=== PATIENT | female | born 1955 | race Caucasian/White ===

== ENCOUNTER 2019-05-04 08:38 | Inpatient (IN) | payer MEDICAID, MEDICARE ==
[2019-05-04 09:11] LABS: ABSOLUTE EOSINOPHILS # (AUTO) 0.2 10^3/uL (0.0-0.6); ABSOLUTE LYMPHOCYTES (AUTO) 1.6 10^3/uL (0.5-4.7); ABSOLUTE MONOCYTES (AUTO) 0.6 10^3/uL (0.1-1.4); BASOPHILS % (AUTO) 0.6 % (0-2); EOSINOPHILS % (AUTO) 2.4 % (0-6); HEMATOCRIT 48.7 % (36.0-47.0); HEMOGLOBIN 16.2 g/dL (12.0-15.5); MEAN CORPUSCULAR HEMOGLOBIN 30.4 pg (27.0-33.4); MEAN CORPUSCULAR HGB CONC 33.3 g/dL (32.0-36.0); MEAN CORPUSCULAR VOLUME 91 fl (80-97); MONOCYTES % (AUTO) 8.6 % (3-13); PLATELET COUNT 194 10^3/uL (150-450); RED BLOOD COUNT 5.33 10^6/uL (3.72-5.28); RED CELL DISTRIBUTION WIDTH 13.3 % (11.5-14.0); SEGMENTED NEUTROPHILS % (AUTO) 66.4 % (42-78); TOTAL CELLS COUNTED % (AUTO) 100 %; WHITE BLOOD COUNT 7.5 10^3/uL (4.0-10.5)
[2019-05-04 09:41] LABS: ALBUMIN 4.6 g/dL (3.5-5.0); ALKALINE PHOSPHATASE 108 U/L (38-126); ANION GAP 7 (5-19); ASPARTATE AMINO TRANSFERASE 41 U/L (14-36); BILIRUBIN,DIRECT 0.2 mg/dL (0.0-0.4); BILIRUBIN,TOTAL 0.5 mg/dL (0.2-1.3); BLOOD UREA NITROGEN 14 mg/dL (7-20); CALCIUM 10.3 mg/dL (8.4-10.2); CARBON DIOXIDE 34 mmol/L (22-30); CHLORIDE 101 mmol/L (98-107); CREATINE KINASE 27 U/L (30-135); GLUCOSE 112 mg/dL (75-110); POTASSIUM 4.7 mmol/L (3.6-5.0); TOTAL PROTEIN 7.6 g/dL (6.3-8.2)
[2019-05-04 09:53] LABS: CREATINE KINASE MB 1.26 ng/mL (<4.55); NT PRO BNP 127 pg/mL (<125)
--- NOTE | 2019-05-04 09:54 | RADIOLOGY REPORT (SQ) ---
EXAM DESCRIPTION: CHEST SINGLE VIEW COMPLETED DATE/TIME: 05/04/2019 9:47 am REASON FOR STUDY: cough, COPD COMPARISON: None. NUMBER OF VIEWS: One view. TECHNIQUE: Single frontal radiographic view of the chest acquired. LIMITATIONS: None. FINDINGS: LUNGS AND PLEURA: No opacities, masses or pneumothorax. No pleural effusion. Attenuated bl ood vessels and flattened drake-diaphragms. MEDIASTINUM AND HILAR STRUCTURES: No masses. Contour normal. HEART AND VASCULAR STRUCTURES: Heart normal in size. Normal vasculature. BONES: No acute findings. HARDWARE: None in the chest. OTHER: No other significant finding. IMPRESSION: COPD. NO ACUTE RADIOGRAPHIC FINDING IN THE CHEST. TECHNICAL DOCUMENTATION: JOB ID: [id number] [employer]- All Rights Reserved Reading location - IP/workstation name: [email or web address]
[2019-05-04 09:57] LABS: TROPONIN I < 0.012 ng/mL
[2019-05-04] MEDS ORDERED: ALBUTEROL SULFATE 0.083% NEB 2.5 MG/3 ML AMPUL NEB ONE ×2 (10:03→13:11)
[2019-05-04] MEDS ORDERED: METHYLPREDNISOLONE INJ 125 MG/2 ML SDV IV ONE (10:03)
[2019-05-04] MEDS ORDERED: IPRATROPIUM/ALBUTEROL 0.5-2.5 MG/3 ML AMPUL NEB ONE ×2 (10:03→13:11)
--- NOTE | 2019-05-04 10:03 | ER Document Report ---
ED General - General Chief Complaint: Breathing Difficulty Stated Complaint: SHORTNESS OF BREATH Time Seen by Provider: 05/04/19 09:47 TRAVEL OUTSIDE OF THE [place] IN LAST 30 DAYS: No - HPI Notes: 64-year-old female with past medical history of COPD to the emergency department via EMS with complaints of shortness of breath has been getting progressively worse over the past 3 to 5 days. She states that she recently moved here couple months ago from [place] and her Medicaid has not transferred over. Because of that she has not been able to have a physician or get any of her maintenance medicines. She states that her maintenance medicines are albuterol rescue inhaler and albuterol nebulizers. She states that she still has portable oxygen as well. However in the past several days she is just been getting worse. She has never been intubated for COPD before but she has been hospitalized. She s tates that she cannot remember exactly when but it was several years ago. She states that she still continues to smoke5 to 6 cigarettes a day. She has not been able to smoke in the past several days because she has been so short of breath. She denies any chest pain, diaphoresis, fevers. She does admit to cough. She denies any sick contacts. She also endorses urinary frequency. - Related Data Allergies/Adverse Reactions: tramadol Allergy (Verified 05/04/19 09:11) Home Medications: Albuterol. Home Oxygen Past Medical History - General Information source: Patient - Social History Smoking Status: Current Every Day Smoker Frequency of alcohol use: None Drug Abuse: None Family History: Reviewed & Not Pertinent Patient has suicidal ideation: No Patient has homicidal ideation: No Review of Systems - Review of Systems Constitutional: denies: Chills, Fever EENT: No symptoms reported Cardiovascular: Heart racing - Heart racing when exerting herself. denies: Syncope, Dizziness, Lightheaded Respiratory: Cough, Short of breath, Sputum, Wheezing Gastrointestinal: denies: Abdominal pain, Diarrhea, Nausea, Vomiting Genitourinary: Frequency. denies: Burning, Dysuria, Flank pain, Hematuria, Incontinence Musculoskeletal: No symptoms reported Skin: No symptoms reported Hematologic/Lymphatic: No symptoms reported Neurological/Psychological: No symptoms reported -: Yes All other systems reviewed and negative Physical Exam - Vital signs Vitals: Resp Pulse Ox 28 H 100 05/04/19 08:45 05/04/19 08:45 Selected Entries 05/04/19 05/04/19 05/04/19 09:00 09:01 10:00 Heart Rate ( 94 109 Monitors) Respiratory 24 H 22 H Rate Blood Pressure 127/70 H Blood Pressure 89 Mean O2 Sat by Pulse 94 Oximetry 05/04/19 10:01 Heart Rate ( 104 Monitors) Respiratory 34 H Rate Blood Pressure 141/79 H Blood Pressure 99 Mean O2 Sat by Pulse 92 Oximetry Interpretation: Normal - General General appearance: Alert In distress: Mild Notes: Patient appears older than stated age. She is very thin and cachectic. While laying in the bed she does not have respiratory distress and can speak in full sentences but as soon as you sit her up to listen to her back she starts to have some tachypnea and shortness of breath. Per SENA Warren when she first arrived she was tripoding but then was able to settle down. She is not diaphoretic - HEENT Head: Normocephalic, Atraumatic Eyes: Normal Pupils: PERRL Ears: Normal External canal: Normal Tympanic membrane: Normal Sinus: Normal Nasal: Normal Mouth/Lips: Normal Pharynx: Normal. No: Potential airway comprom. Neck: Normal, Supple - Respiratory Respiratory status: Labored, Pursed lip breathing. No: Retractions, Tachypnea, Tripod position Chest status: Nontender Breath sounds: Decreased air movement, Productive cough, Wheezing Chest palpation: Normal - Cardiovascular Rhythm: Regular Heart sounds: Normal auscultation Murmur: No Notes: no pitting edema - Abdominal Inspection: Normal Distension: No distension Bowel sounds: Normal Tenderness: Nontender. No: Tender, McBurney's point, Medrano's sign, Guarding, Rebound Organomegaly: No organomegaly - Back Back: Normal. No: Deformity/step-off, CVA tenderness, Vertebra tenderness - Extremities General upper extremity: Normal inspection, Nontender, Normal color, Normal ROM, Normal temperature General lower extremity: Normal inspection, Nontender, Normal color, Normal ROM, Normal temperature, Normal weight bearing. No: Rubi's sign - Neurological Neuro grossly intact: Yes Cognition: Normal Orientation: AAOx4 Bert Coma Scale Eye Opening: Spontaneous Bert Coma Scale Verbal: Oriented Bert Coma Scale Motor: Obeys Commands [place] Coma Scale Total: 15 Speech: Normal Cranial nerves: Normal Cerebellar coordination: Normal Motor strength normal: LUE, RUE, LLE, RLE Additional motor exam normals: Equal comedian. No: Pronator drift Sensory: Normal - Psychological Associated symptoms: Normal affect, Normal mood - Skin Skin Temperature: Warm Skin Moisture: Dry Skin Color: Normal Course - Re-evaluation Re-evalutation: 05/04/[address] Benitez and he agrees that she will need admission. Did attempt an ambulation challenge on the patient and she failed it quite quickly. When SENA Warren was trying to ambulate the patient, patient got acutely short of breath with tachypnea, heart rate up to 130, and her O2 sat on 3 L of oxygen went down to 86%. She was very winded. I rounded on her not long after her attempted ambulation and she still was having a little bit of tachypnea and prolonged expirations. Spoke with , hospitalist. We discussed the patient to include her presentation as well as her difficulty with ambulation even on her normal 3 L of oxygen. He will come down and see her. - Vital Signs Vital signs: Temp Pulse Resp BP Pulse Ox 135 H 30 H 121/66 86 L 05/04/19 15:00 05/04/19 15:00 05/04/19 15:00 05/04/19 15:00 - Laboratory Result Diagrams: 05/04/19 08:51 05/04/19 08:51 Laboratory results interpreted by me: 05/04/19 05/04/19 05/04/19 08:51 08:51 08:51 RBC 5.33 H Hgb 16.2 H Hct 48.7 H Carbon Dioxide 34 H Glucose 112 H Calcium 10.3 H AST 41 H Creatine Kinase 27 L NT-Pro-B Natriuret Pep 127 H Urine Protein Urine Ketones Urine Blood Urine Nitrite Ur Leukocyte Esterase 05/04/19 11:35 RBC Hgb Hct Carbon Dioxide Glucose Calcium AST Creatine Kinase NT-Pro-B Natriuret Pep Urine Protein 30 H Urine Ketones TRACE H Urine Blood MODERATE H Urine Nitrite POSITIVE H Ur Leukocyte Esterase MODERATE H Discharge - Discharge Clinical Impression: COPD exacerbation, Tachycardia, Tachypnea, Hypoxia Condition: Stable Disposition: ADMITTED INPATIENT Admitting Provider: Roberta (Hospitalist) Unit Admitted: Telemetry
[2019-05-04 11:59] LABS: APPEARANCE,URINE CLOUDY; BILIRUBIN,URINE NEGATIVE (NEGATIVE); COLOR,URINE YELLOW; GLUCOSE, URINE NEGATIVE (NEGATIVE); KETONES,URINE TRACE mg/dL (NEGATIVE); LEUKOCYTE ESTERASE,URINE MODERATE (NEGATIVE); NITRITE,URINE POSITIVE (NEGATIVE); PROTEIN,URINE 30 mg/dL (NEGATIVE); URINE SPECIFIC GRAVITY 1.019; UROBILINOGEN,URINE NEGATIVE mg/dL (<2.0)
[2019-05-04] MEDS ORDERED: ACETAMINOPHEN 325 MG TABLET PO ONE (12:11)
[2019-05-04] MEDS ORDERED: NORMAL SALINE 1000 ML 1,000 ML IV ONE (13:12)
[2019-05-04] MEDS: MAGNESIUM SULFATE/D5W 1 GM/100 ML RTUPB IV SCH ×2 (14:15→15:26)
--- NOTE | 2019-05-04 16:29 | PDOC H&P ---
History of Present Illness History of Present Illness: STAN LINN is a 64 year old female with a history of oxygen dependent COPD who moved here within the last few months and did not get her Medicaid arranged ahead of time and so she is been here for the past few months without a primary care doctor and she ran out of her medicines not long ago. She says she has been borrowing an albuterol inhaler from someone. She does have an oxygen c oncentrator. She says she normally can only walk a few feet before she gets short of breath and has to catch her breath. She does say that she felt like she has been declining over the last few months. She was then state this morning where she felt like she could not catch her breath at all and so her son called EMS. She was apparently wheezing pretty hard whenever she came in but she has responded to bronchodilators. They ambulated her on the 3 L per nasal cannula that she normally wears and her oxygen saturations went down to 86%, which is probably pretty normal for her. Past Medical History Pulmonary Medical History: Reports: Chronic Obstructive Pulmonary Disease (COPD) Social History Smoking Status: Current Every Day Smoker Family History Family History: Reviewed & Not Pertinent Parental Family History Reviewed: Yes Children Family History Reviewed: Yes Sibling(s) Family History Reviewed.: Yes Medication/Allergy Allergies/Adverse Reactions: tramadol Allergy (Verified 05/04/19 09:11) Review of Systems All systems: reviewed and no additional remarkable complaints except as stated - All systems were reviewed and were negative except as noted in the HPI Physical Exam Vital Signs: Temp Pulse Resp BP Pulse Ox 135 H 30 H 121/66 86 L 05/04/19 15:00 05/04/19 15:00 05/04/19 15:00 05/04/19 15:00 Intake & Output 05/03/19 05/04/19 05/05/19 06:59 06:59 06:59 Intake Total 1200 Balance 1200 General appearance: PRESENT: no acute distress, cooperative, disheveled, thin Head exam: PRESENT: atraumatic, normocephalic Eye exam: PRESENT: EOMI, PERRLA. ABSENT: conjunctival injection, nystagmus, scleral icterus Ear exam: PRESENT: normal external ear exam Mouth exam: PRESENT: moist, neck supple Teeth exam: PRESENT: poor dentation Throat exam: ABSENT: post pharyngeal erythema Neck exam: PRESENT: full ROM. ABSENT: carotid bruit, JVD, lymphadenopathy, meningismus, tenderness, thyromegaly Respiratory exam: PRESENT: decreased breath sounds, prolonged expiratory phas, symmetrical, unlabored, other - Increased AP chest diameter. ABSENT: accessory muscle use, chest wall tenderness, crackles, rhonchi, tachypnea, wheezes Cardiovascular exam: PRESENT: +S1, +S2, tachycardia Pulses: PRESENT: normal carotid pulses Vascular exam: PRESENT: normal capillary refill GI/Abdominal exam: PRESENT: normal bowel sounds, soft. ABSENT: distended, guarding, rebound, tenderness Extremities exam: ABSENT: clubbing, pedal edema Musculoskeletal exam: PRESENT: normal inspection. ABSENT: deformity Neurological exam: PRESENT: alert, awake, oriented to person, oriented to place, oriented to time, oriented to situation, CN II-XII grossly intact. ABSENT: motor sensory deficit Psychiatric exam: PRESENT: flat affect Skin exam: PRESENT: dry, warm Results Laboratory Results: 05/04/19 08:51 05/04/19 08:51 05/04/19 05/04/19 05/04/19 08:51 08:51 11:35 WBC 7.5 RBC 5.33 H Hgb 16.2 H Hct 48.7 H MCV 91 MCH 30.4 MCHC 33.3 RDW 13.3 Plt Count 194 Seg Neutrophils % 66.4 Sodium 142.3 Potassium 4.7 Chloride 101 Carbon Dioxide 34 H Anion Gap 7 BUN 14 Creatinine 0.63 Est GFR ( Amer) > 60 Glucose 112 H Calcium 10.3 H Total Bilirubin 0.5 AST 41 H Alkaline Phosphatase 108 Total Protein 7.6 Albumin 4.6 Urine Color YELLOW Urine Appearance CLOUDY Urine pH 5.0 Ur Specific [place] 1.019 Urine Protein 30 H Urine Glucose (UA) NEGATIVE Urine Ketones TRACE H Urine Blood MODERATE H Urine Nitrite POSITIVE H Ur Leukocyte Esterase MODERATE H Urine WBC (Auto) 58 Urine RBC (Auto) 05/04/19 05/04/19 08:51 08:51 Creatine Kinase 27 L CK-MB (CK-2) 1.26 Troponin I < 0.012 NT-Pro-B Natriuret Pep 127 H Impressions: Chest X-Ray 05/04/19 08:56 IMPRESSION: COPD. NO ACUTE RADIOGRAPHIC FINDING IN THE CHEST. Assessment and Plan - Diagnosis (1) COPD exacerbation Is this a current diagnosis for this admission?: Yes Plan: She responded to bronchodilators and was stable at rest. I believe that when I ambulated her on 3 L and her oxygen saturation dropped to 86%, this is probably normal for this patient considering the severity of her COPD. Based on her description of her baseline level of activity, I think that she probably does minimal ADLs with a substantial amount of effort. She has rather impressively hyperinflated lungs on chest x-ray. She is not wheezing now. I am going to put her on some prednisone and some breathing treatments, and try to get her started on some maintenance medications. We will have case management assess her for needs. She had a urinalysis suggestive of bacteriuria, but she had no urinary complaints and so I am not going to continue antibiotics towards that. (2) Chronic hypoxemic respiratory failure Is this a current diagnosis for this admission?: Yes Plan: Currently stable on her usual 3 L per nasal cannula. - Time Time Spent with patient: 35 or more minutes - Inpatient Certification Based on my medical assessment, after consideration of the patient's comorbidit ies, presenting symptoms, or acuity I expect that the services needed warrant INPATIENT care.: Yes I certify that my determination is in accordance with my understanding of [place] [facility]'s requirements for reasonable and necessary INPATIENT services [42 CFR 412.3e].: Yes Medical Necessity: Significant Comorbidiites Make Outpatient Treatment Too Risky, Need Close Monitoring Due to Risk of Patient Decompensation, Need for Nebulizer Therapy and Monitoring of Response
[2019-05-04] MEDS ORDERED: CEFTRIAXONE 1 GM/D5W RTU 1 GM/50 ML RTUPB IV ONE (17:00)
--- NOTE | 2019-05-04 17:07 | EKG REPORT ---
SEVERITY:- ABNORMAL ECG - SINUS RHYTHM SHORT CO INTERVAL, ACCELERATED AV CONDUCTION RIGHT AXIS DEVIATION LOW VOLTAGE IN FRONTAL LEADS CONSIDER LEFT VENTRICULAR HYPERTROPHY : Confirmed by: Jesse Huynh MD 04-May-2019 17:07:12
[2019-05-04] MEDS: DOXYCYCLINE HYCLATE 100 MG TABLET PO SCH (17:27)
[2019-05-04] MEDS ORDERED: INFLUENZA QUAD (6MOS+) 2019-20 VAC 0.5 ML SYR IM ONE (18:52)
[2019-05-04] MEDS: IPRATROPIUM/ALBUTEROL 0.5-2.5 MG/3 ML AMPUL NEB PRN (19:31)
[2019-05-04 20:03] LABS: ARTERIAL BLOOD H2CO3 1.97 mmol/L (1.05-1.35); ARTERIAL BLOOD HCO3 32.3 mmol/L (20-24); ARTERIAL BLOOD O2 SATURATION 98.2 % (94-98); ARTERIAL BLOOD PCO2 65.6 mmHg (35-45); ARTERIAL BLOOD PH 7.31 (7.35-7.45); ARTERIAL BLOOD PO2 128.7 mmHg (80-100); ARTERIAL BLOOD TOTAL CO2 34.3 mmol/L (21-25)
[2019-05-04] MEDS: HEPARIN SOD (PORCINE) 5,000 UNIT/ML 1 ML VIAL SUBCUT SCH (21:17)
[2019-05-05] MEDS ORDERED: DOXYCYCLINE HYCLATE 100 MG TABLET PO ONE (05:49)
[2019-05-05] MEDS: DOXYCYCLINE HYCLATE 100 MG TABLET PO SCH ×2 (06:01→18:43)
[2019-05-05] MEDS: HEPARIN SOD (PORCINE) 5,000 UNIT/ML 1 ML VIAL SUBCUT SCH ×3 (06:02→21:24)
[2019-05-05] MEDS: IPRATROPIUM/ALBUTEROL 0.5-2.5 MG/3 ML AMPUL NEB PRN ×2 (09:02→11:41)
[2019-05-05] MEDS: PREDNISONE 20 MG TABLET PO SCH (09:31)
[2019-05-05] MEDS: FLUTICASONE/VILANTEROL 200-25 MCG/DOSE IH SCH (09:32)
--- NOTE | 2019-05-05 20:54 | PDOC PROGRESS REPORT ---
Subjective Progress Note for:: 05/05/19 Subjective:: No adverse events overnight. No new complaints. Vital signs been stable. She been stable on her usual level of oxygen support. She asked if she can have an albuterol inhaler, some Senokot, some saline nose spray, and some Megace. She said that she took Megace before to stimulate her appetite and felt like the liquid worked better for her than the pill. Reason For Visit: AECOPD Physical Exam Vital Signs: Temp Pulse Resp BP Pulse Ox 97.7 F 93 18 104/62 98 05/05/19 19:48 05/05/19 19:48 05/05/19 19:48 05/05/19 19:48 05/05/19 19:48 Intake & Output 05/04/19 05/05/19 05/06/19 06:59 06:59 06:59 Intake Total 0 1975 Balance 1649 1975 Weight 38.6 kg 38.6 kg General appearance: PRESENT: no acute distress, cooperative, disheveled, thin Respiratory exam: PRESENT: decreased breath sounds, prolonged expiratory phas, symmetrical, unlabored, other - Increased AP chest diameter. ABSENT: accessory muscle use, chest wall tenderness, crackles, rhonchi, tachypnea, wheezes Cardiovascular exam: PRESENT: +S1, +S2, tachycardia Pulses: PRESENT: normal carotid pulses Vascular exam: PRESENT: normal capillary refill GI/Abdominal exam: PRESENT: normal bowel sounds, soft. ABSENT: distended, guarding, rebound, tenderness Extremities exam: ABSENT: clubbing, pedal edema Musculoskeletal exam: PRESENT: normal inspection. ABSENT: deformity Neurological exam: PRESENT: alert, awake, oriented to person, oriented to place, oriented to time, oriented to situation Psychiatric exam: PRESENT: flat affect Skin exam: PRESENT: dry, warm Results Laboratory Results: 05/04/19 08:51 05/04/19 08:51 05/04/19 05/04/19 08:51 08:51 Creatine Kinase 27 L CK-MB (CK-2) 1.26 Troponin I < 0.012 NT-Pro-B Natriuret Pep 127 H Impressions: Chest X-Ray 05/04/19 08:56 IMPRESSION: COPD. NO ACUTE RADIOGRAPHIC FINDING IN THE CHEST. Assessment and Plan - Diagnosis (1) COPD exacerbation Is this a current diagnosis for this admission?: Yes Plan: Doing well on prednisone, doxycycline, and bronchodilators. We have started some maintenance medications for her and she will need prescriptions whenever she is discharged. (2) Chronic hypoxemic respiratory failure Is this a current diagnosis for this admission?: Yes Plan: She stable on her usual level of oxygen support at rest. I fully anticipate that this patient will desaturate with the slightest exertion. She also has some chronic CO2 retention and will need to have a sleep study as an outpatient to assess her need for BiPAP at home. - Plan Summary Summary: She does not have a primary care provider here, but apparently she does have insurance coverage here, possibly Medicare. We have had a social science professor consult in place. She will need prescriptions for her maintenance medications in addition to what ever acute medication she will need. She would also like an arrangement to be set up with a primary care provider. - Time Time Spent with patient: 15-24 minutes
[2019-05-06] MEDS: HEPARIN SOD (PORCINE) 5,000 UNIT/ML 1 ML VIAL SUBCUT SCH ×2 (05:43→14:00)
[2019-05-06] MEDS: DOXYCYCLINE HYCLATE 100 MG TABLET PO SCH (05:44)
[2019-05-06] MEDS ORDERED: SENNOSIDES/DOCUSATE 8.6-50 MG 1 EACH TABLET PO PRN (09:46)
[2019-05-06] MEDS: PREDNISONE 20 MG TABLET PO SCH (09:46)
[2019-05-06] MEDS ORDERED: ALBUTEROL SULFATE HFA (90 MCG/PUFF) 200 PUFF/8.5 GM MDI IH PRN (09:46)
[2019-05-06] MEDS: FLUTICASONE/VILANTEROL 200-25 MCG/DOSE IH SCH (09:47)
[2019-05-06] MEDS ORDERED: INFLUENZA QUAD (6MOS+) 2019-20 VAC 0.5 ML SYR IM ONE (10:16)
[2019-05-06] MEDS ORDERED: ALBUTEROL SULFATE HFA (90 MCG/PUFF) 200 PUFF/8.5 GM MDI IH ONE (10:30)
[2019-05-06] MEDS ORDERED: FLUTICASONE/VILANTEROL 100-25 MCG/DOSE IH SCH (11:00)
[2019-05-06] MEDS ORDERED: SODIUM CHLORIDE NASAL SPRAY 44 ML NASL SCH (11:00)
[2019-05-06] MEDS ORDERED: UMECLIDINIUM BROMIDE 62.5 MCG/DOSE IH SCH (11:00)
[2019-05-06] MEDS ORDERED: MEGESTROL ACETATE SUSP 400 MG/10 ML UDCUP PO SCH (11:00)
[2019-05-06 14:52] VITALS: BP 121/66
--- NOTE | 2019-05-07 15:13 | PDOC DISCHARGE SUMMARY ---
Impression - Admit/DC Date/PCP Admission Date/Primary Care Provider: 05/04/19 17:11 Discharge Date: 05/06/19 - Discharge Diagnosis (1) COPD exacerbation Is this a current diagnosis for this admission?: Yes (2) Chronic hypoxemic respiratory failure Is this a current diagnosis for this admission?: Yes - Additional Information Resuscitation Status: Full Code Discharge Diet: As Tolerated, Regular Discharge Activity: Activity As Tolerated, Balance Activity w/Rest, Energy Con servation Referrals: ONDINA MACK MD [COMMUNITY BASED STAFF] - 05/14/19 1:30 pm (PLEASE ARRIVE 1:15PM PRIOR TO APPT. BRING INSURANCE CARD,ID AND ANY MEDICATIONS CURRENTLY TAKING.) BETO THOMAS MD [ACTIVE STAFF] - 06/23/19 10:15 am (PROVIDER'S OFFICE WILL SEND A NEW PATIENT PACKET, PLEASE COMPLETE AND BRING TO APPT.) Prescriptions: Prednisone [Deltasone 20 mg Tablet] 40 mg PO DAILY #8 tablet Ipratropium/Albuterol Sulfate [Duoneb 3 ml Ampul] 3 ml NEB RTQ8HP PRN #90 vial.neb PRN Reason: For Wheezing Megestrol Acetate [Megace Lachelle 400 mg/10 ml Udcup] 200 mg PO DAILY #30 udc Gabapentin [Neurontin] 800 mg PO Q8 #90 Albuterol Sulfate [Proair HFA Inhalation Aerosol 8.5 gm MDI] 2 puff IH Q6HP PRN #1 hfa.aer.ad PRN Reason: Fluticasone/Umeclidin/Vilanter [Trelegy 100-62.5-25 Mcg Ellipta 14 Dose/Dpi] 2 puff IH DAILY #1 inhaler Albuterol Sulfate [Ventolin 0.042% Neb 1.25 mg/3 mL Ampul] 1.25 mg NEB Q8HP PRN #90 PRN Reason: For Wheezing Doxycycline Hyclate [Vibramycin 100 mg Tablet] 100 mg PO Q12A #10 tablet Home Medications: Albuterol Sulfate [Proair HFA Inhalation Aerosol 8.5 gm MDI] 2 puff IH DAILYP PRN 05/05/19 Albuterol Sulfate [Proair HFA Inhalation Aerosol 8.5 gm MDI] 2 puff IH Q6HP PRN #1 hfa.aer.ad 05/06/19 Albuterol Sulfate [Ventolin 0.042% Neb 1.25 mg/3 mL Ampul] 1.25 mg NEB Q8HP PRN #90 05/06/19 Doxycycline Hyclate [Vibramycin 100 mg Tablet] 100 mg PO Q12A #10 tablet 05/06/19 Fluticasone/Umeclidin/Vilanter [Trelegy 100-62.5-25 Mcg Ellipta 14 Dose/Dpi] 2 puff IH DAILY #1 inhaler 05/06/19 Gabapentin [Neurontin] 800 mg PO Q8 #90 05/06/19 Ipratropium/Albuterol Sulfate [Duoneb 3 ml Ampul] 3 ml NEB RTQ8HP PRN #90 vial.neb 05/06/19 Megestrol Acetate [Megace Lachelle 400 mg/10 ml Udcup] 200 mg PO DAILY #30 udc 05/06/19 Prednisone [Deltasone 20 mg Tablet] 40 mg PO DAILY #8 tablet 05/06/19 Sennosides/Docusate 8.6-50 mg [Senna Plus Tablet] 1 each PO BIDP PRN tablet 05/06/19 Sodium Chloride [[place] Nasal [employer] 44 ml Bottle] 1 spray NASL ACHS bottle 05/06/19 History of Present Illiness History of Present Illness: P by Dr. Granados: STAN LINN is a 64 year old female with a history of oxygen dependent COPD who moved here within the last few months and did not get her Medicaid arranged ahead of time and so she is been here for the past few months without a primary care doctor and she ran out of her medicines not long ago. She says she has been borrowing an albuterol inhaler from someone. She does have an oxygen concentrator. She says she normally can only walk a few feet before she gets short of breath and has to catch her breath. She does say that she felt like she has been declining over the last few months. She was then state this morning where she felt like she could not catch her breath at all and so her son called EMS. She was apparently wheezing pretty hard whenever she came in but she has responded to bronchodilators. They ambulated her on the 3 L per nasal cannula that she normally wears and her oxygen saturations went down to 86%, which is probably pretty normal for her. Hospital Course Hospital Course: The patient was admitted to the medical floor on continuous cardiac telemetry. She is provided supplemental oxygen, scheduled and as needed nebulizer treat ments, was empirically placed on doxycycline for bronchitis, and provided prednisone for mild COPD exacerbation. The patient does have advanced emphysema with chronic respiratory failure requiring supplemental oxygen at her baseline. Her exacerbation rapidly resolved with use of bronchodilators and p.o. prednisone. She is now at her baseline respiratory status and requesting to be discharged home. The patient is discharged home in stable condition on her baseline oxygen requirement of 3 L/min continuous use. She has met with discharge planning and arrangements have been made for her to receive home health nursing and oxygen supply through a local oxygen as she has recently moved to [place]. She has been started on maintenance LABA/LAMA/ICS. She is provided refills of her nebulizer medications. She is provided prescriptions for doxycycline, and prednisone, as well as, a rescue inhaler for use as needed when not at home. She is instructed to establish with a local primary care provider. She is instructed to take her medications as prescribed. She is strongly advised to avoid known respiratory triggers. She is encouraged to return to the emergency department as needed for concerning symptoms. Physical Exam Vital Signs: Temp Pulse Resp BP Pulse Ox 97.3 F 101 H 20 121/66 98 05/06/19 14:49 05/06/19 14:49 05/06/19 14:49 05/06/19 14:49 05/06/19 14:49 Intake & Output 05/06/19 05/07/19 05/08/19 06:59 06:59 06:59 Intake Total 2176 618 Balance 2176 618 Weight 39.1 kg General appearance: PRESENT: no acute distress, cooperative, thin, well- developed Head exam: PRESENT: atraumatic, normocephalic Eye exam: PRESENT: conjunctiva pink, EOMI, PERRLA. ABSENT: scleral icterus Ear exam: PRESENT: normal external ear exam Mouth exam: PRESENT: moist, tongue midline Respiratory exam: PRESENT: clear to auscultation ronaldo, prolonged expiratory phas, symmetrical, unlabored. ABSENT: rales, rhonchi, wheezes Cardiovascular exam: PRESENT: RRR, +S1, +S2. ABSENT: diastolic murmur, rubs, systolic murmur Pulses: PRESENT: normal dorsalis pedis pul Vascular exam: PRESENT: normal capillary refill GI/Abdominal exam: PRESENT: normal bowel sounds, soft. ABSENT: distended, guarding, mass, organolmegaly, rebound, tenderness Rectal exam: PRESENT: deferred Extremities exam: PRESENT: full ROM. ABSENT: calf tenderness, clubbing, pedal edema Neurological exam: PRESENT: alert, awake, oriented to person, oriented to place, oriented to time, oriented to situation, CN II-XII grossly intact. ABSENT: motor sensory deficit Psychiatric exam: PRESENT: appropriate affect, normal mood. ABSENT: homicidal ideation, suicidal ideation Skin exam: PRESENT: dry, intact, warm. ABSENT: cyanosis, rash Results Laboratory Results: WBC 7.5 10^3/uL (4.0-10.5) 05/04/19 08:51 RBC 5.33 10^6/uL (3.72-5.28) H 05/04/19 08:51 Hgb 16.2 g/dL (12.0-15.5) H 05/04/19 08:51 Hct 48.7 % (36.0-47.0) H 05/04/19 08:51 MCV 91 fl (80-97) 05/04/19 08:51 MCH 30.4 pg (27.0-33.4) 05/04/19 08:51 MCHC 33.3 g/dL (32.0-36.0) 05/04/19 08:51 RDW 13.3 % (11.5-14.0) 05/04/19 08:51 Plt Count 194 10^3/uL (150-450) 05/04/19 08:51 Lymph % (Auto) 22.0 % (13-45) 05/04/19 08:51 [place] % (Auto) 8.6 % (3-13) 05/04/19 08:51 Eos % (Auto) 2.4 % (0-6) 05/04/19 08:51 Baso % (Auto) 0.6 % (0-2) 05/04/19 08:51 Absolute Neuts (auto) 5.0 10^3/uL (1.7-8.2) 05/04/19 08:51 Absolute Lymphs (auto) 1.6 10^3/uL (0.5-4.7) 05/04/19 08:51 Absolute Monos (auto) 0.6 10^3/uL (0.1-1.4) 05/04/19 08:51 Absolute Eos (auto) 0.2 10^3/uL (0.0-0.6) 05/04/19 08:51 Absolute Basos (auto) 0.0 10^3/uL (0.0-0.2) 05/04/19 08:51 Seg Neutrophils % 66.4 % (42-78) 05/04/19 08:51 Carbonic Acid 1.97 mmol/L (1.05-1.35) H 05/04/19 19:38 HCO3/H2CO3 Ratio 16:1 05/04/19 19:38 ABG pH 7.31 (7.35-7.45) L 05/04/19 19:38 ABG pCO2 65.6 mmHg (35-45) H 05/04/19 19:38 ABG pO2 128.7 mmHg (80-100) H 05/04/19 19:38 ABG HCO3 32.3 mmol/L (20-24) H 05/04/19 19:38 ABG Total CO2 34.3 mmol/L (21-25) H 05/04/19 19:38 ABG O2 Saturation 98.2 % (94-98) H 05/04/19 19:38 ABG Base Excess 4.0 mmol/L 05/04/19 19:38 FiO2 34% 05/04/19 19:38 Sodium 142.3 mmol/L (137-145) 05/04/19 08:51 Potassium 4.7 mmol/L (3.6-5.0) 05/04/19 08:51 Chloride 101 mmol/L (98-107) 05/04/19 08:51 Carbon Dioxide 34 mmol/L (22-30) H 05/04/19 08:51 Anion Gap 7 (5-19) 05/04/19 08:51 BUN 14 mg/dL (7-20) 05/04/19 08:51 Creatinine 0.63 mg/dL (0.52-1.25) 05/04/19 08:51 Est GFR ( Amer) > 60 (>60) 05/04/19 08:51 Est GFR (MDRD) Non-Af > 60 (>60) 05/04/19 08:51 Glucose 112 mg/dL (75-110) H 05/04/19 08:51 Lactic Acid (Sepsis) 1.0 mmol/L (0.7-2.1) 05/04/19 08:51 Calcium 10.3 mg/dL (8.4-10.2) H 05/04/19 08:51 Total Bilirubin 0.5 mg/dL (0.2-1.3) 05/04/19 08:51 Direct Bilirubin 0.2 mg/dL (0.0-0.4) 05/04/19 08:51 Neonat Total Bilirubin Not Reportable 05/04/19 08:51 Neonat Direct Bilirubin Not Reportable 05/04/19 08:51 Neonat Indirect Bili Not Reportable 05/04/19 08:51 AST 41 U/L (14-36) H 05/04/19 08:51 ALT 29 U/L (<35) 05/04/19 08:51 Alkaline Phosphatase 108 U/L (38-126) 05/04/19 08:51 Creatine Kinase 27 U/L (30-135) L 05/04/19 08:51 CK-MB (CK-2) 1.26 ng/mL (<4.55) 05/04/19 08:51 Troponin I < 0.012 ng/mL 05/04/19 08:51 NT-Pro-B Natriuret Pep 127 pg/mL (<125) H 05/04/19 08:51 Total Protein 7.6 g/dL (6.3-8.2) 05/04/19 08:51 Albumin 4.6 g/dL (3.5-5.0) 05/04/19 08:51 Urine Color YELLOW 05/04/19 11:35 Urine Appearance CLOUDY 05/04/19 11:35 Urine pH 5.0 (5.0-9.0) 05/04/19 11:35 Ur Specific [place] 1.019 05/04/19 11:35 Urine Protein 30 mg/dL (NEGATIVE) H 05/04/19 11:35 Urine Glucose (UA) NEGATIVE mg/dL (NEGATIVE) 05/04/19 11:35 Urine Ketones TRACE mg/dL (NEGATIVE) H 05/04/19 11:35 Urine Blood MODERATE (NEGATIVE) H 05/04/19 11:35 Urine Nitrite POSITIVE (NEGATIVE) H 05/04/19 11:35 Urine Bilirubin NEGATIVE (NEGATIVE) 05/04/19 11:35 Urine Urobilinogen NEGATIVE mg/dL (<2.0) 05/04/19 11:35 Ur Leukocyte Esterase MODERATE (NEGATIVE) H 05/04/19 11:35 Urine WBC (Auto) 58 /HPF 05/04/19 11:35 Urine RBC (Auto) 11 /HPF 05/04/19 11:35 Urine Bacteria (Auto) 3+ /HPF 05/04/19 11:35 Squamous Epi Cells Auto 8 /HPF 05/04/19 11:35 Urine Mucus (Auto) MANY /LPF 05/04/19 11:35 Urine Ascorbic Acid NEGATIVE (NEGATIVE) 05/04/19 11:35 05/04/19 08:51 CK-MB (CK-2) 1.26 Troponin I < 0.012 NT-Pro-B Natriuret Pep 127 H Impressions: Chest X-Ray 05/04/19 08:56 IMPRESSION: COPD. NO ACUTE RADIOGRAPHIC FINDING IN THE CHEST. Plan Plan of Treatment: Patient is discharged home in stable condition. She is advised to establish with a local primary care provider. Arrangements have been made for the patient to receive home health nursing and supplemental oxygen. She is instructed to take her medications as prescribed. She is instructed to avoid known respiratory triggers. Is encouraged to return to the emergency department as needed for concerning symptoms. Time Spent: Greater than 30 Minutes Stroke Is this a Stroke Patient?: No Acute Heart Failure - Is this a Heart Failure Patient?: No
== END 2019-05-06 15:50 | disposition home health service (06) | DRG 191 ==
LOC: ER 08:38 → EH 17:11 → 5 18:39
PROVIDERS: ADMIT Family Medicine; ATTEND Family Medicine
DX: J44.1 Chronic obstructive pulmonary disease with (acute) exacerbation (principal); J96.11 Chronic respiratory failure with hypoxia; Z99.81 Dependence on supplemental oxygen; R35.0 Frequency of micturition; F17.210 Nicotine dependence, cigarettes, uncomplicated; Z23 Encounter for immunization; Z79.51 Long term (current) use of inhaled steroids; Z79.52 Long term (current) use of systemic steroids; Z88.6 Allergy status to analgesic agent
CPT/HCPCS: 36415; 36600; 71045; 80053; 81001; 82550; 82553; 82803; 83605; 83880; 84484; 85025; 90686; 93005; 93010; 94640; 96361; 96365; 96375; 99285; J0696; J1644; J2930; J3475; J3490; J7030; J7512; J7620

== ENCOUNTER 2019-05-08 12:33 | Emergency (ER) | payer MEDICARE ==
[2019-05-08 12:57] LABS: ABSOLUTE BASOPHILS # (AUTO) 0.1 10^3/uL (0.0-0.2); ABSOLUTE EOSINOPHILS # (AUTO) 0.4 10^3/uL (0.0-0.6); ABSOLUTE LYMPHOCYTES (AUTO) 2.3 10^3/uL (0.5-4.7); BASOPHILS % (AUTO) 1.1 % (0-2); EOSINOPHILS % (AUTO) 5.1 % (0-6); HEMATOCRIT 46.4 % (36.0-47.0); HEMOGLOBIN 15.8 g/dL (12.0-15.5); LYMPHOCYTES % (AUTO) 25.8 % (13-45); MEAN CORPUSCULAR HEMOGLOBIN 30.6 pg (27.0-33.4); MEAN CORPUSCULAR VOLUME 90 fl (80-97); MONOCYTES % (AUTO) 11.5 % (3-13); PLATELET COUNT 209 10^3/uL (150-450); RED BLOOD COUNT 5.15 10^6/uL (3.72-5.28); RED CELL DISTRIBUTION WIDTH 13.2 % (11.5-14.0); SEGMENTED NEUTROPHILS % (AUTO) 56.5 % (42-78); TOTAL CELLS COUNTED % (AUTO) 100 %; WHITE BLOOD COUNT 8.8 10^3/uL (4.0-10.5)
[2019-05-08 13:16] LABS: ALBUMIN 4.4 g/dL (3.5-5.0); ALKALINE PHOSPHATASE 81 U/L (38-126); ANION GAP 5 (5-19); ASPARTATE AMINO TRANSFERASE 19 U/L (14-36); BILIRUBIN,DIRECT 0.2 mg/dL (0.0-0.4); BILIRUBIN,TOTAL 0.4 mg/dL (0.2-1.3); BLOOD UREA NITROGEN 19 mg/dL (7-20); CALCIUM 10.1 mg/dL (8.4-10.2); CARBON DIOXIDE 37 mmol/L (22-30); CHLORIDE 98 mmol/L (98-107); GLUCOSE 98 mg/dL (75-110); POTASSIUM 4.4 mmol/L (3.6-5.0); TOTAL PROTEIN 7.3 g/dL (6.3-8.2)
[2019-05-08 13:19] LABS: CREATINE KINASE < 20 U/L (30-135)
--- NOTE | 2019-05-08 13:28 | RADIOLOGY REPORT (SQ) ---
EXAM DESCRIPTION: CHEST SINGLE VIEW COMPLETED DATE/TIME: 05/08/2019 1:03 pm REASON FOR STUDY: bed 14 db COMPARISON: 05/04/2019 EXAM PARAMETERS: NUMBER OF VIEWS: One view. TECHNIQUE: Single frontal radiographic view of the chest acquired. RADIATION DOSE: NA LIMITATIONS: None. FINDINGS: LUNGS AND PLEURA: Marked hyperexpansion of the lungs. No infiltrate, effusion, or mass. MEDIASTINUM AND HILAR STRUCTURES: No masses. Contour normal. HEART AND VASCULAR STRUCTURES: Heart normal in size. Normal vasculature. BONES: No acute findings. HARDWARE: None in the chest. OTHER: No other significant finding. IMPRESSION: Chronic lung changes with no acute cardiopulmonary findings. TECHNICAL DOCUMENTATION: JOB ID: [id number] [employer]- All Rights Reserved Reading location - IP/workstation name: [email or web address]
[2019-05-08 13:32] LABS: CREATINE KINASE MB 0.57 ng/mL (<4.55); TROPONIN I < 0.012 ng/mL
--- NOTE | 2019-05-08 14:52 | ER Document Report ---
ED Medical Screen (RME) - General Chief Complaint: Breathing Difficulty Stated Complaint: DIFFICULTY BREATHING Time Seen by Provider: 05/08/19 14:47 Mode of Arrival: Medic Information source: Patient Notes: 64-year-old female presented to ED via EMS for shortness of breath and asthma exacerbation. She states she was discharged home from the hospital on Sunday for asthma exacerbation. She states she went home her house was full of dog cares she was vacuuming up the hairs she became very short of breath. She states her home health nurse came to the house saw that she was emaciated short of breath [place] her phone was turned off in her car was in the shop so she had no transportation and no phone and no neighbors. The home health nurse stated she could not leave her in such condition at home by herself. The patient states that the nurse told her to please call 911 she needed to go somewhere if she could go with family. The patient states she was not sure she needed to go to the emergency room. Patient states the home health nurse then called her son and had him call 911. The patient was then brought to the emergency room. The patient is 5 foot 7 and weighs 36.5 kg with a BMI of 12.6. I have greeted and performed a rapid initial assessment of this patient. A comprehensive ED assessment and evaluation of the patient, analysis of test results and completion of medical decision making process will be conducted by an additional ED providers. TRAVEL OUTSIDE OF THE [place] IN LAST 30 DAYS: No - Related Data Allergies/Adverse Reactions: tramadol Allergy (Verified 05/04/19 09:11) Past Medical History Pulmonary Medical History: Reports: Hx COPD Psychiatric Medical History: Denies: Hx Depression Physical Exam - Vital signs Vitals: Temp Resp BP Pulse Ox 97.7 F 25 H 127/80 H 95 05/08/19 12:42 05/08/19 12:42 05/08/19 12:42 05/08/19 12:42 Course - Vital Signs Vital signs: Temp Pulse Resp BP Pulse Ox 97.7 F 27 H 125/86 H 96 05/08/19 12:42 05/08/19 14:01 05/08/19 14:01 05/08/19 14:01 - Laboratory Result Diagrams: 05/08/19 12:45 11/28/19 12:45 Laboratory results interpreted by me: 05/08/19 05/08/19 12:45 12:45 Hgb 15.8 H Carbon Dioxide 37 H Creatine Kinase < 20 L
[2019-05-08 15:20] LABS: APPEARANCE,URINE CLOUDY; BILIRUBIN,URINE NEGATIVE (NEGATIVE); COLOR,URINE YELLOW; GLUCOSE, URINE NEGATIVE (NEGATIVE); KETONES,URINE NEGATIVE (NEGATIVE); LEUKOCYTE ESTERASE,URINE NEGATIVE (NEGATIVE); NITRITE,URINE NEGATIVE (NEGATIVE); PROTEIN,URINE NEGATIVE (NEGATIVE); URINE SPECIFIC GRAVITY 1.014; UROBILINOGEN,URINE NEGATIVE mg/dL (<2.0)
[2019-05-08] MEDS ORDERED: PREDNISONE 20 MG TABLET PO ONE (15:48)
[2019-05-08] MEDS ORDERED: DOXYCYCLINE HYCLATE 100 MG TABLET PO ONE (15:48)
--- NOTE | 2019-05-08 15:55 | ER Document Report ---
ED General - General Chief Complaint: Breathing Difficulty Stated Complaint: DIFFICULTY BREATHING Time Seen by Provider: 05/08/19 14:47 Mode of Arrival: Medic TRAVEL OUTSIDE OF THE [place] IN LAST 30 DAYS: No - HPI Notes: Mrs. Marshall is a 64-year-old female presenting with a chief complaint of breathing problems after referral here by home health nursing service. This lady is been a 1 pack/day cigarette smoker for over 40 years and was hospitalized in this facility within the past week for acute hypoxemic respiratory failure associated with acute exacerbation of COPD. She was discharged 48 hours ago on 3 L/min of nasal O2 constantly and was given new prescriptions for doxycycline and prednisone. Since she was discharged she has not been able to fill her prescriptions. She has been getting her oxygen. Home health nurse visited her for the first time today and found that the patient did not have money to pay her electric bill and therefore was running a space heater in the same room where she was running nasal O2. The home health nurse was concerned enough that she called EMS and had the patient transported here. The patient states however that she feels that her breathing is actually improved substantially since she left the hospital and notes that she has not smoked at all since that time. She further indicates that she tried to tell home health nurse that she has family living locally who has transportation and would be willing to take her in over the weekend until she can get funds to get her prescriptions filled and get her electrical service reestablished and her cell phone fixed. Patient specifically denies fever, chills, vomiting or worsening shortness of breath. - Related Data Allergies/Adverse Reactions: tramadol Allergy (Verified 05/04/19 09:11) Past Medical History - General Information source: Patient - Social History Smoking Status: Former Smoker Family History: Reviewed & Not Pertinent Patient has suicidal ideation: No Patient has homicidal ideation: No Pulmonary Medical History: Reports: Hx COPD Psychiatric Medical History: Denies: Hx Depression Review of Systems - Review of Systems Notes: Constitutional: Negative for fever. HENT: Negative for sore throat. Eyes: Negative for visual changes. Cardiovascular: Negative for chest pain. Respiratory: As per HPI. Gastrointestinal: Negative for abdominal pain, vomiting or diarrhea. Genitourinary: Negative for dysuria. Musculoskeletal: Negative for back pain. Skin: Negative for rash. Neurological: Negative for headaches, weakness or numbness. 10 point ROS negative except as marked above and in HPI. Physical Exam - Vital signs Vitals: Temp Resp BP Pulse Ox 97.7 F 25 H 127/80 H 95 05/08/19 12:42 05/08/19 12:42 05/08/19 12:42 05/08/19 12:42 - Notes Notes: GENERAL: Female patient appears approximately her stated age with overall appearance consistent with pulmonary cachexia. She is not currently in any major distress. She is wearing nasal O2 at 3 L/min and shows O2 saturation of 98%. SKIN: Good turgor no rashes. HEAD: Bitemporal wasting. Atraumatic. EYES: PERRLA. EOMI. Conjunctivae and sclerae clear. EARS: CANALS AND TMS CLEAR. NOSE: CLEAR. MOUTH: Moist mucosa. Dentures present. No stridor or edema. No drooling. Throat: Clear. NECK: Supple. No masses or thyromegaly. No adenopathy. Carotids 2+ without bruits. No JVD. BACK: Symmetrical without tenderness. CHEST: Prominent increased AP diameter of the chest with hyperresonance to percussion. Respirations unlabored. Breath sounds distant, clear and symmetrical. HEART: Distant. Regular rhythm. No murmur gallop or rub. ABDOMEN: Soft nontender without masses, organomegaly or rebound. Bowel sounds normally active. No bruits. GENITALIA: Deferred. EXTREMITIES: No edema. No calf tenderness. Cap refill less than 1.5 seconds. Dorsalis pedis and posterior tibial pulses 3+ and symmetrical. NEUROLOGICAL: GCS 15. Alert and oriented x3. Normal gait. Fluent speech. Cranial nerves II through XII intact. Sensorimotor and cerebellar normal. Normal tone. Psychiatric: Appropriate affect. Course - Re-evaluation Re-evalutation: 05/08/19 15:55 I perceive this to be primarily a social situation at this time. The patient actually looks better than described on her most recent discharge summary from 2 days ago. This is her perception as well. I have given her a dose of oral prednisone and doxycycline here. I will involve social work/discharge planning to try to assist her situation. We are also going to allow her son to come and pick her up and take her to his home over the weekend as a potential disposition at this point. 05/08/19 16:27 Son has arrived and says that he is happy to take the patient to his home for the duration of the weekend. He also has funds available to get her medication filled at this time. - Vital Signs Vital signs: Temp Pulse Resp BP Pulse Ox 97.7 F 19 129/72 H 100 05/08/19 12:42 05/08/19 15:01 05/08/19 15:01 05/08/19 15:01 - Laboratory Result Diagrams: 05/08/19 12:45 05/08/19 12:45 Laboratory results interpreted by me: 05/08/19 05/08/19 12:45 12:45 Hgb 15.8 H Carbon Dioxide 37 H Creatine Kinase < 20 L Discharge - Discharge Clinical Impression: Chronic hypoxemic respiratory failure COPD (chronic obstructive pulmonary disease) Qualifiers: COPD type: unspecified COPD Qualified Code(s): J44.9 - Chronic obstructive pulmonary disease, unspecified Disposition: HOME, SELF-CARE Additional Instructions: Return here as needed for new or worsening symptoms. Continue prescribed medications. Follow-up with your primary care doctor within the next 1 week.
[2019-05-08 16:28] VITALS: BP 128/84
--- NOTE | 2019-05-09 12:08 | EKG REPORT ---
SEVERITY:- ABNORMAL ECG - SINUS TACHYCARDIA RIGHT ATRIAL ABNORMALITY NONSPECIFIC IVCD WITH LAD LEFT VENTRICULAR HYPERTROPHY PROBABLE INFERIOR INFARCT, AGE INDETERMINATE ANTERIOR INFARCT, OLD : Confirmed by: Desmond Terry 09-May-2019 12:08:03
== END 2019-05-08 16:35 | disposition home or self-care (01) ==
LOC: ER 12:33
DX: J96.11 Chronic respiratory failure with hypoxia (principal); J44.9 Chronic obstructive pulmonary disease, unspecified; F17.210 Nicotine dependence, cigarettes, uncomplicated; Z99.81 Dependence on supplemental oxygen
CPT/HCPCS: 93005; 99285; 36415; 82553; 82550; 85025; 80053; 81001; 84484; 71045; 93010; A9270 ×2; J7512

== ENCOUNTER 2019-08-28 00:36 | Inpatient (IN) | payer MEDICARE, MEDICAID ==
[2019-08-28] MEDS ORDERED: ALBUTEROL SULFATE 0.083% NEB 2.5 MG/3 ML AMPUL NEB ONE (00:44)
--- NOTE | 2019-08-28 00:50 | ER Document Report ---
ED General - General Chief Complaint: Respiratory Distress Stated Complaint: RESPIRATORY DISTRESS Time Seen by Provider: 08/28/19 00:41 Primary Care Provider: STEPHANIE JAMA FNP [Primary Care Provider] - Follow up as needed Mode of Arrival: Medic Information source: Patient, Emergency Med Personnel Cannot obtain history due to: Other - Respiratory distress Notes: 64-year-old female arrives by EMS with chief complaint of having severe respiratory distress accessory musculature use of neck and chest and abdomen and using nonrebreather with albuterol A/A treatments. Patient reports she smokes 1 pack/day since she was 17 years old. She is very cachectic elderly-appearing for age. She has prior history of COPD. She does use 2 L oxygen nasal cannula continuously at her home. She also uses BiPAP at home. Patient reports for the last 2 weeks she has had URI symptoms of cough and cold but this progressed into green productive phlegm for the last 1 week and severe symptoms since the early a.m. hours today. Patient denies any travel to foreign countries or exposure to foreign individuals especially from [place] or [place] or [place] where there is a current pandemic of coronavirus. Patient denies any skin lesions spider bites animal bites human bites TRAVEL OUTSIDE OF THE [place] IN LAST 30 DAYS: No - HPI Onset: This morning Onset/Duration: Persistent, Worse Quality of pain: Achy Severity: Moderate Pain Level: 2 Context: 64-year-old female arrives by EMS after being sick with URI for 2 weeks productive green phlegm for 1 week and severe dyspnea x12 hours. Patient uses CPAP at home as well as continuous O2. She is a very cachectic elderly for age appearing female positive smoker for greater than 40 pack years. Patient in mild respiratory distress upon arrival using nonrebreather and albuterol neb treatments upon arrival. Patient has very little inspirational sounds on auscultations upon arrival by exam upon arrival. Patient able to speak only 2-3 word sentences between breaths Associated symptoms: Hurts to breath, Shortness of breath Exacerbated by: Coughing, Deep breathing Relieved by: Denies Similar symptoms previously: Yes - Pneumonia 8 years ago Recently seen / treated by doctor: No - Related Data Allergies/Adverse Reactions: tramadol Allergy (Verified 08/28/19 01:15) Past Medical History - General Information source: Patient, Emergency Med Personnel - Social History Smoking Status: Current Every Day Smoker Cigarette use (# per day): Yes Chew tobacco use (# tins/day): No Smoking Education Provided: Yes Frequency of alcohol use: None Drug Abuse: None Lives with: Family Family History: Reviewed & Not Pertinent Patient has suicidal ideation: No Patient has homicidal ideation: No Pulmonary Medical History: Reports: Hx COPD Psychiatric Medical History: Denies: Hx Depression Review of Systems - Review of Systems Constitutional: See HPI, Weakness EENT: See HPI, Nose congestion Cardiovascular: See HPI, Palpitations, Orthopnea, Dyspnea, Dizziness, Lightheaded Respiratory: See HPI, Cough, Short of breath, Sputum Gastrointestinal: No symptoms reported Genitourinary: No symptoms reported Female Genitourinary: No symptoms reported Musculoskeletal: No symptoms reported Skin: No symptoms reported Hematologic/Lymphatic: No symptoms reported Neurological/Psychological: No symptoms reported Physical Exam - Vital signs Vitals: Pulse Ox 95 08/28/19 00:39 Interpretation: Tachycardic, Tachypneic - General General appearance: Alert, Anxious In distress: Moderate - HEENT Head: Normocephalic Eyes: Normal Conjunctiva: Normal Cornea: Normal Extraocular movements intact: Yes Eyelashes: Normal Pupils: PERRL Sinus: Normal Nasal: Normal Mouth/Lips: Normal Mucous membranes: Dry Pharynx: Erythema Neck: Lymphadenopathy - Respiratory Respiratory status: Respiratory distress, Depressed respirations, Tachypnea Chest status: Nontender, Accessory muscle use Breath sounds: Decreased air movement, Productive cough, Wheezing Chest palpation: Normal - Cardiovascular Rhythm: Tachycardia Heart sounds: Normal auscultation Murmur: No Friction rub: No Mary's crunch: No - Abdominal Inspection: Normal Distension: No distension Bowel sounds: Normal Tenderness: Nontender Organomegaly: No organomegaly - Back Back: Normal - Extremities General upper extremity: Normal inspection General lower extremity: Normal inspection - Neurological Neuro grossly intact: Yes Cognition: Normal Orientation: AAOx4 [place] Coma Scale Eye Opening: Spontaneous [place] Coma Scale Verbal: Oriented [place] Coma Scale Motor: Obeys Commands [place] Coma Scale Total: 15 Speech: Normal Cranial nerves: Normal Cerebellar coordination: Normal Motor strength normal: LUE, RUE, LLE, RLE - Psychological Associated symptoms: Anxious - Skin Skin Temperature: Warm Skin Moisture: Dry Course - Vital Signs Vital signs: Temp Pulse Resp BP Pulse Ox 99.2 F 120 H 22 H 105/66 100 08/28/19 01:25 08/28/19 00:41 08/28/19 02:01 08/28/19 02:00 08/28/19 02:01 - Laboratory Result Diagrams: 08/28/19 01:07 08/28/19 01:07 Laboratory results interpreted by me: 08/28/19 08/28/19 08/28/19 01:07 01:07 01:47 WBC 14.5 H Absolute Neuts (auto) 9.6 H Absolute Monos (auto) 1.7 H VBG pH 7.29 L Creatinine 0.44 L Glucose 126 H - Diagnostic Test Radiology reviewed: Reports reviewed Radiology results interpreted by me: 08/28/19 02:42 Question of pneumonia and also left perihilar neoplasm questionable per radiology Critical Care Note - Critical Care Note Total time excluding time spent on procedures (mins): 90 Comments: This case was discussed with Dr. Abdon Harris and he advised medical floor Discharge - Discharge Clinical Impression: COPD exacerbation, Chronic hypoxemic respiratory failure, Hypoxia, Tachypnea, left perihilar mass per radiology Pneumonia Qualifiers: Pneumonia type: due to unspecified organism Laterality: left Lung location: low er lobe of lung Qualified Code(s): J18.9 - Pneumonia, unspecified organism Condition: Fair Disposition: ADMITTED INPATIENT Unit Admitted: Medical Floor Referrals: STEPHANIE JAMA FNP [Primary Care Provider] - Follow up as needed
[2019-08-28 01:22] LABS: ABSOLUTE BASOPHILS # (AUTO) 0.1 10^3/uL (0.0-0.2); ABSOLUTE EOSINOPHILS # (AUTO) 0.3 10^3/uL (0.0-0.6); ABSOLUTE LYMPHOCYTES (AUTO) 2.8 10^3/uL (0.5-4.7); ABSOLUTE MONOCYTES (AUTO) 1.7 10^3/uL (0.1-1.4); ABSOLUTE NEUT (AUTO) 9.6 10^3/uL (1.7-8.2); BASOPHILS % (AUTO) 0.5 % (0-2); HEMATOCRIT 42.9 % (36.0-47.0); HEMOGLOBIN 14.1 g/dL (12.0-15.5); LYMPHOCYTES % (AUTO) 19.6 % (13-45); MEAN CORPUSCULAR HEMOGLOBIN 29.6 pg (27.0-33.4); MEAN CORPUSCULAR VOLUME 90 fl (80-97); MONOCYTES % (AUTO) 11.8 % (3-13); PLATELET COUNT 255 10^3/uL (150-450); RED BLOOD COUNT 4.77 10^6/uL (3.72-5.28); RED CELL DISTRIBUTION WIDTH 13.1 % (11.5-14.0); SEGMENTED NEUTROPHILS % (AUTO) 66.1 % (42-78); TOTAL CELLS COUNTED % (AUTO) 100 %; WHITE BLOOD COUNT 14.5 10^3/uL (4.0-10.5)
[2019-08-28] MEDS ORDERED: DEXAMETHASONE SOD PHOS INJ 10 MG/1 ML VIAL IV ONE (01:28)
[2019-08-28] MEDS ORDERED: CEFTRIAXONE INJ 1000 MG VIAL IV ONE (01:28)
[2019-08-28] MEDS ORDERED: AZITHROMYCIN INJ 500 MG VIAL IV ONE (01:38)
--- NOTE | 2019-08-28 01:48 | RADIOLOGY REPORT (SQ) ---
EXAM DESCRIPTION: AP portable radiograph of the chest CLINICAL HISTORY: 64 years Female, sob COMPARISON: Single view of the chest May 08, 2019 FINDINGS: Lungs: Lungs are hyperinflated. There is subtle left perihilar and lower lobe opacification. Probable nipple shadows bilaterally. No definite pneumothorax or pleural effusion. Mediastinum: Masslike opacification is seen in the left hilum. This may represent prominent pulmonary artery however a hilar mass cannot be excluded. Bones: Osseous structures are stable IMPRESSION: 1. Hyperinflation. 2. Subtle parenchymal opacification in the left hilar and lower lobe worrisome for pneumonia. 3. Masslike opacification in the left hilum worrisome for neoplasm. This might also just represent a large pulmonary artery. If clinically indicated this could be further evaluated with chest CT with contrast.
[2019-08-28 01:55] LABS: VENOUS BLOOD BASE EXCESS 0.7 mmol/L; VENOUS BLOOD HCO3 28.7 mmol/L (20-32); VENOUS BLOOD PCO2 61.1 mmHg (35-63); VENOUS BLOOD PH 7.29 (7.30-7.42)
[2019-08-28 02:04] LABS: ALKALINE PHOSPHATASE 109 U/L (38-126); ANION GAP 6 (5-19); ASPARTATE AMINO TRANSFERASE 18 U/L (14-36); BLOOD UREA NITROGEN 10 mg/dL (7-20); CALCIUM 9.8 mg/dL (8.4-10.2); CARBON DIOXIDE 30 mmol/L (22-30); CHLORIDE 102 mmol/L (98-107); GLUCOSE 126 mg/dL (75-110); POTASSIUM 4.5 mmol/L (3.6-5.0)
[2019-08-28 02:05] LABS: BILIRUBIN,TOTAL 0.5 mg/dL (0.2-1.3); TOTAL PROTEIN 6.8 g/dL (6.3-8.2)
[2019-08-28 02:55] LABS: APPEARANCE,URINE CLOUDY; BILIRUBIN,URINE NEGATIVE (NEGATIVE); COLOR,URINE YELLOW; GLUCOSE, URINE NEGATIVE (NEGATIVE); KETONES,URINE NEGATIVE (NEGATIVE); LEUKOCYTE ESTERASE,URINE MODERATE (NEGATIVE); NITRITE,URINE NEGATIVE (NEGATIVE); PROTEIN,URINE NEGATIVE (NEGATIVE)
[2019-08-28 02:58] LABS: A TYPE INFLUENZA AG NEGATIVE (NEGATIVE); B INFLUENZA AG NEGATIVE (NEGATIVE)
[2019-08-28] MEDS ORDERED: LEVALBUTEROL HCL NEB 0.63 MG/3 ML AMPUL NEB PRN (03:38)
[2019-08-28] MEDS ORDERED: TUBERCULIN,PURIF.PROT.DERIV. 5 TU/0.1 ML TEST 1 ML VIAL ID ONE ×2 (03:38→04:38)
[2019-08-28] MEDS ORDERED: ACETAMINOPHEN 325 MG TABLET PO PRN (03:38)
[2019-08-28] MEDS ORDERED: GUAIFENESIN SYRP 200 MG/10 ML UDC PO PRN (03:38)
[2019-08-28] MEDS ORDERED: NICOTINE 21 MG/24 HR PATCH.TD24 TD PRN (03:47)
[2019-08-28] MEDS ORDERED: MORPHINE SULFATE 10 MG/ML INJ IV PRN (03:47)
[2019-08-28] MEDS ORDERED: MAGNESIUM HYDROXIDE SUSP 30 ML UDCUP PO PRN (03:47)
[2019-08-28] MEDS ORDERED: MAG HYDROX/AL HYDROX/SIMETH SUSP 30 ML UDCUP PO PRN (03:47)
[2019-08-28] MEDS: RINGERS SOLUTION,LACTATED 1,000 ML IV PRN ×2 (04:27→14:02)
--- NOTE | 2019-08-28 06:33 | PDOC H&P ---
History of Present Illness Admission Date/PCP: 08/28/19 03:02 MAILE AMIN Patient complains of: Dyspnea History of Present Illness: STAN LINN is a 64 year old female who presented to the emergency room with acute dyspnea. Patient admits developing severe dyspnea over the last 12 hours prior to her arrival in the emergency room. Her dyspnea was accompanied by wheezing and labored breathing requiring use of her accessory muscles of respiration. Her dyspnea was made worse by activity and exertion. Her dyspnea was so severe that it was not responding to use of her home oxygen, home nebulizer treatments and home BiPAP. She further admits in the accompanying symptoms of an upper respiratory infection for the last 2 weeks with a mild nonproductive cough which progressed to a cough productive of small amounts of greenish sputum over the last week. She denies other associated or accompanying signs and symptoms. She admits numerous prior similar episodes related to her COPD. She has not identified any additional aggravating or ameliorating factors for her dyspnea. In the emergency room the patient was treated with BiPAP and was found to have a possible left-sided pneumonia. She was subsequently admitted to the hospital for further evaluation and treatment. Past Medical History Cardiac Medical History: Denies: Atrial Fibrillation, Coronary Artery Disease, Myocardial Infarction, Hyperlipidema, Hypertension Pulmonary Medical History: Reports: Chronic Obstructive Pulmonary Disease (COPD), Pneumonia, Respiratory Failure Denies: Asthma EENT Medical History: Denies: Cataracts, Ears - Hearing aids Neurological Medical History: Denies: Hemorrhagic CVA, Ischemic CVA, Seizures Endocrine Medical History: Denies: Diabetes Mellitus Type 1, Diabetes Mellitus Type 2, Hyperthyroidism, Hypothyroidism, Obesity Renal/ Medical History: Denies: Chronic Kidney Disease, Nephrolithiasis Malignancy Medical History: Reports: None GI Medical History: Denies: Cirrhosis, Crohn's Disease, Gastroesophageal Reflux Disease, Hepatitis, Peptic Ulcer Disease, Ulcerative Colitis Musculoskeltal Medical History: Denies: Arthritis, Gout Skin Medical History: Denies: Eczema, Psoriasis Psychiatric Medical History: Reports: Tobacco Dependency Denies: Alcohol Dependency, Depression, Substance Abuse Traumatic Medical History: Reports: None Hematology: Denies: Anemia, Bleeding Tendencies Infectious Medical History: Reports: None Past Surgical History Past Surgical History: Reports: Hysterectomy, Tonsillectomy Social History Information Source: Patient Lives with: Family Smoking Status: Current Every Day Smoker Electronic Cigarette use?: No Frequency of Alcohol Use: None Hx Recreational Drug Use: No Drugs: None Hx Prescription Drug Abuse: No - Advance Directive Resuscitation Status: Full Code Surrogate healthcare decision maker:: Ramana Del Rosario Family History Family History: Hypertension, Malignancy. denies: CAD, COPD, CVA, DM Parental Family History Reviewed: Yes Children Family History Reviewed: No Sibling(s) Family History Reviewed.: Yes Medication/Allergy Home Medications: Albuterol Sulfate [Proair HFA Inhalation Aerosol 8.5 gm MDI] 2 puff IH DAILYP PRN 05/05/19 Albuterol Sulfate [Proair HFA Inhalation Aerosol 8.5 gm MDI] 2 puff IH Q6HP PRN #1 [email or web address] 05/06/19 Albuterol Sulfate [Ventolin 0.042% Neb 1.25 mg/3 mL Ampul] 1.25 mg NEB Q8HP PRN #90 05/06/19 Doxycycline Hyclate [Vibramycin 100 mg Tablet] 100 mg PO Q12A #10 tablet 05/06/19 Fluticasone/Umeclidin/Vilanter [Trelegy 100-62.5-25 Mcg Ellipta 14 Dose/Dpi] 2 puff IH DAILY #1 inhaler 05/06/19 Gabapentin [Neurontin] 800 mg PO Q8 #90 05/06/19 Ipratropium/Albuterol Sulfate [Duoneb 3 ml Ampul] 3 ml NEB RTQ8HP PRN #90 vial.neb 05/06/19 Megestrol Acetate [Megace Lachelle 400 mg/10 ml Udcup] 200 mg PO DAILY #30 udc 05/06/19 Prednisone [Deltasone 20 mg Tablet] 40 mg PO DAILY #8 tablet 05/06/19 Sennosides/Docusate 8.6-50 mg [Senna Plus Tablet] 1 each PO BIDP PRN tablet 05/06/19 Sodium Chloride [Dowling Nasal [place] 44 ml Bottle] 1 spray NASL ACHS bottle 05/06/19 Allergies/Adverse Reactions: tramadol Allergy (Verified 08/28/19 01:15) Review of Systems Constitutional: ABSENT: chills, fever(s) Eyes: ABSENT: visual disturbances, other - Eye pain Ears: ABSENT: hearing changes, other - Ear pain Nose, Mouth, and Throat: ABSENT: headache(s), sore throat Cardiovascular: PRESENT: dyspnea on exertion. ABSENT: chest pain, palpitations Respiratory: PRESENT: as per HPI, cough, dyspnea, sputum Gastrointestinal: ABSENT: abdominal pain, constipation, diarrhea, nausea, vomiting Genitourinary: ABSENT: dysuria, hematuria Musculoskeletal: ABSENT: back pain, joint swelling Integumentary: ABSENT: pruritus, rash Neurological: ABSENT: confusion, convulsions, focal weakness, memory loss, syncope Psychiatric: ABSENT: anxiety, depression Endocrine: ABSENT: cold intolerance, heat intolerance, polydipsia, polyphagia, polyuria Hematologic/Lymphatic: ABSENT: easy bleeding, easy bruising Allergic/Immunologic: ABSENT: seasonal rhinorrhea Physical Exam Vital Signs: Temp Pulse Resp BP Pulse Ox 99.2 F 120 H 22 H 105/66 100 08/28/19 01:25 08/28/19 00:41 08/28/19 02:01 08/28/19 02:00 08/28/19 02:01 Intake & Output 08/26/19 08/27/19 08/28/19 23:59 23:59 23:59 Weight 35 kg General appearance: PRESENT: no acute distress, cooperative, thin - Cachectic Head exam: PRESENT: atraumatic, normocephalic Eye exam: PRESENT: conjunctiva pink. ABSENT: conjunctival injection, scleral icterus Ear exam: PRESENT: normal external ear exam. ABSENT: bleeding, drainage Mouth exam: PRESENT: dry mucosa, neck supple Neck exam: ABSENT: thyromegaly, tracheal deviation Respiratory exam: PRESENT: accessory muscle use - Moderate use of accessory muscles noted even with BiPAP., prolonged expiratory phas - Moderately prolonged expiratory phase noted throughout all torres, symmetrical, wheezes - Moderate expiratory wheezes present throughout all torres Cardiovascular exam: PRESENT: RRR. ABSENT: clicks, gallop, rubs Pulses: PRESENT: normal radial pulses, normal dorsalis pedis pul Vascular exam: PRESENT: normal capillary refill. ABSENT: pallor GI/Abdominal exam: PRESENT: normal bowel sounds, soft. ABSENT: tenderness Rectal exam: PRESENT: deferred Extremities exam: ABSENT: joint swelling, pedal edema Musculoskeletal exam: ABSENT: deformity, dislocation Neurological exam: PRESENT: alert, oriented to person, oriented to place, oriented to time, oriented to situation, CN II-XII grossly intact. ABSENT: motor sensory deficit Psychiatric exam: PRESENT: appropriate affect, normal mood Skin exam: PRESENT: dry, intact, warm. ABSENT: jaundice, rash, urticaria Results Laboratory Results: 08/28/19 01:07 08/28/19 01:07 08/28/19 08/28/19 08/28/19 01:07 01:07 01:07 WBC 14.5 H RBC 4.77 Hgb 14.1 Hct 42.9 MCV 90 MCH 29.6 MCHC 33.0 RDW 13.1 Plt Count 255 Seg Neutrophils % 66.1 VBG pH Cancelled VBG pCO2 Cancelled VBG HCO3 Cancelled VBG Base Excess Cancelled Sodium 137.6 Potassium 4.5 Chloride 102 Carbon Dioxide 30 Anion Gap 6 BUN 10 Creatinine 0.44 L Est GFR ( Amer) > 60 Glucose 126 H Calcium 9.8 Total Bilirubin 0.5 AST 18 Alkaline Phosphatase 109 Total Protein 6.8 Albumin 4.0 Urine Color Urine Appearance Urine pH Ur Specific [place] Urine Protein Urine Glucose (UA) Urine Ketones Urine Blood Urine Nitrite Ur Leukocyte Esterase Urine WBC (Auto) Urine RBC (Auto) 08/28/19 08/28/19 01:47 02:32 WBC RBC Hgb Hct MCV MCH MCHC RDW Plt Count Seg Neutrophils % VBG pH 7.29 L VBG pCO2 61.1 VBG HCO3 28.7 VBG Base Excess 0.7 Sodium Potassium Chloride Carbon Dioxide Anion Gap BUN Creatinine Est GFR ( Amer) Glucose Calcium Total Bilirubin AST Alkaline Phosphatase Total Protein Albumin Urine Color YELLOW Urine Appearance CLOUDY Urine pH 7.0 Ur Specific [place] 1.010 Urine Protein NEGATIVE Urine Glucose (UA) NEGATIVE Urine Ketones NEGATIVE Urine Blood SMALL H Urine Nitrite NEGATIVE Ur Leukocyte Esterase MODERATE H Urine WBC (Auto) 20 Urine RBC (Auto) 5 08/28/19 01:07 Troponin I < 0.012 Impressions: Chest X-Ray 08/28/19 00:41 IMPRESSION: 1. Hyperinflation. 2. Subtle parenchymal opacification in the left hilar and lower lobe worrisome for pneumonia. 3. Masslike opacification in the left hilum worrisome for neoplasm. This might also just represent a large pulmonary artery. If clinically indicated this could be further evaluated with chest CT with contrast. Assessment and Plan - Diagnosis (1) Acute on chronic respiratory failure with hypoxia Is this a current diagnosis for this admission?: Yes (2) Pneumonia involving left lung Qualifiers: Pneumonia type: due to unspecified organism Lung location: lower lobe of lung Qualified Code(s): J18.9 - Pneumonia, unspecified organism Is this a current diagnosis for this admission?: Yes (3) Chronic obstructive pulmonary disease with acute lower respiratory infection Is this a current diagnosis for this admission?: Yes (4) Severe protein-calorie malnutrition Is this a current diagnosis for this admission?: Yes (5) Tobacco use disorder, severe, dependence Is this a current diagnosis for this admission?: Yes - Plan Summary Summary: Patient is admitted to the medical floor where she will receive usual supportive and symptomatic cares. She will be treated with an aggressive pulmonary toilet utilizing nebulized Xopenex, Atrovent, Pulmicort and Mucomyst. She will complete a bolus dosing of IV Solu-Medrol receiving 40 mg IV every 6 hours x3 doses. She will receive supplemental oxygen and respiratory support utilizing noninvasive airway pressure support devices such as BiPAP in order to maintain an adequate oxygen saturation level without the development of hypercapnia. CBCs, metabolic profiles and magnesium levels be obtained on a regular basis as appropriate. Serial lactic acid levels will be obtained over the next 8 hours. Blood cultures have been performed in the emergency room. Patient will be treated with IV antibiotics utilizing Rocephin and Zithromax. Patient will have available morphine sulfate 2 mg IV every 1 hour PRN pain or discomfort. - Time Time Spent with patient: 15-24 minutes Smoking Cessation Education: 3 to 10 minutes Medications reviewed and adjusted accordingly: Yes - Inpatient Certification Based on my medical assessment, after consideration of the patient's comorbidities, presenting symptoms, or acuity I expect that the services needed warrant INPATIENT care.: Yes I certify that my determination is in accordance with my understanding of Medicare's requirements for reasonable and necessary INPATIENT services [42 CFR 412.3e].: Yes Medical Necessity: Need Close Monitoring Due to Risk of Patient Decompensation, Need for Nebulizer Therapy and Monitoring of Response, Need for IV Antibiotics, Risk of Complication if Not Cared For in Hospital
[2019-08-28] MEDS: METHYLPREDNISOLONE INJ 40 MG/1 ML SDV IV SCH ×3 (06:57→17:29)
[2019-08-28] MEDS: HEPARIN SOD (PORCINE) 5,000 UNIT/ML 1 ML VIAL SUBCUT SCH ×3 (06:58→21:05)
[2019-08-28] MEDS: LEVALBUTEROL HCL NEB 1.25 MG/3 ML AMPUL NEB SCH ×2 (09:08→16:16)
[2019-08-28] MEDS: BUDESONIDE NEB 0.5 MG/2 ML AMPUL NEB SCH ×2 (09:08→20:00)
[2019-08-28] MEDS: IPRATROPIUM BROMIDE 0.02% NEB 0.5 MG/2.5 ML AMPUL NEB SCH ×2 (09:08→16:16)
[2019-08-28] MEDS: FAMOTIDINE 20 MG TABLET PO SCH ×2 (10:47→21:04)
[2019-08-28] MEDS: DOCUSATE SODIUM 100 MG CAPSULE PO SCH ×2 (10:47→17:14)
[2019-08-28] MEDS ORDERED: ONDANSETRON HCL INJ/PF 4 MG/2 ML SDV ONE (13:44)
[2019-08-28] MEDS ORDERED: ONDANSETRON HCL INJ/PF 4 MG/2 ML SDV IV PRN (14:27)
--- NOTE | 2019-08-28 15:53 | EKG REPORT ---
SEVERITY:- ABNORMAL ECG - SINUS TACHYCARDIA RONNIE, CONSIDER BIATRIAL ABNORMALITIES LOW VOLTAGE IN FRONTAL LEADS BORDERLINE R WAVE PROGRESSION, ANTERIOR LEADS : Confirmed by: Liana Callahan MD 28-Aug-2019 15:53:04
--- NOTE | 2019-08-28 18:53 | RADIOLOGY REPORT (SQ) ---
EXAM DESCRIPTION: CT CHEST WITH COMPLETED DATE/TIME: 08/28/2019 5:19 pm REASON FOR STUDY: r/o malignancy. Left perihilar prominence seen on recent chest radiograph. COMPARISON: Chest radiograph same date. TECHNIQUE: CT scan of the chest performed using helical scanning technique with dynamic intravenous contrast injection. Images reviewed with lung, soft tissue and bone windows. Reconstructed coronal and sagittal MPR and MIP images reviewed. All images stored on PACS. All CT scanners at this facility use dose modulation, iterative reconstruction, and/or weight based d osing when appropriate to reduce radiation dose to as low as reasonably achievable (ALARA). [facility]: Dose Right [facility]: CareDose [facility]: Dose Right [facility]: Teradose 4D [facility]: Cernostics CONTRAST TYPE AND DOSE: contrast/concentration: Isovue 350.00 mg/ml; Total Contrast Delivered: 60.0 ml; Total Saline Delivered: 46.0 ml RENAL FUNCTION: GFR > 60. RADIATION DOSE: CT Rad equipment meets quality standard of care and radiation dose reduction techniq ues were employed. CTDIvol: 4.8 mGy. DLP: 206 mGy-cm. . LIMITATIONS: None. FINDINGS: LUNGS AND PLEURA: The trachea has normal caliber and appearance. There is mild bronchial wall thickening in the lingula. Background severe pulmonary emphysema. No focal consolidation. Ate lectasis in the lingula. No suspicious pulmonary nodules. HILAR AND MEDIASTINAL STRUCTURES: No identified masses or abnormal nodes. HEART AND VASCULAR STRUCTURES: No aortic aneurysm or dissection. No central pulmonary embolism. The pulmonary arteries are enlarged with main pulmonary artery measuring 31 mm diameter, right pulmonary artery measuring 19 mm diameter, and left pulmonary artery measuring 28 mm diameter. HARDWARE: None in the chest. UPPER ABDOMEN: Bilateral renal cortical cysts. Nonobstructing right renal calculi. THYROID AND OTHER SOFT TISSUES: No masses. No adenopathy. BONES: Spondylosis and degenerative disc disease in the thoracolumbar spine. No suspicious bone lesi ons. OTHER: No other significant finding. IMPRESSION: 1. Atelectasis and bronchial wall thickening in the lingula. No focal consolidation or pleural effus ion. 2. Severe pulmonary emphysema. 3. Prominent pulmonary arteries which can be seen with pulmonary arterial hypertension. Echocardiogr am may provide additional information. TECHNICAL DOCUMENTATION: JOB ID: [id number] Quality ID # [id number]: Final reports with documentation of one or more dose reduction techniques (e.g., Au tomated exposure control, adjustment of the mA and/or kV according to patient size, use of iterative reconstruction technique) 2010 [employer]- All Rights Reserved Reading location - IP/workstation name: [email or web address]
[2019-08-28] MEDS: GABAPENTIN 300 MG CAPSULE PO PRN (21:04)
[2019-08-28] MEDS ORDERED: CEFTRIAXONE 1 GM/D5W RTU 1 GM/50 ML RTUPB IV SCH (22:00)
[2019-08-28] MEDS ORDERED: AZITHROMYCIN 500 MG in DEXTROSE 5%-WATER 250 ML IV SCH (22:00)
[2019-08-29] MEDS: LEVALBUTEROL HCL NEB 1.25 MG/3 ML AMPUL NEB SCH ×2 (00:08→08:30)
[2019-08-29] MEDS: IPRATROPIUM BROMIDE 0.02% NEB 0.5 MG/2.5 ML AMPUL NEB SCH ×2 (00:08→08:30)
[2019-08-29] MEDS: RINGERS SOLUTION,LACTATED 1,000 ML IV PRN (01:26)
[2019-08-29 04:57] LABS: HEMATOCRIT 34.9 % (36.0-47.0); MEAN CORPUSCULAR HEMOGLOBIN 29.7 pg (27.0-33.4); MEAN CORPUSCULAR HGB CONC 33.4 g/dL (32.0-36.0); MEAN CORPUSCULAR VOLUME 89 fl (80-97); PLATELET COUNT 218 10^3/uL (150-450); RED BLOOD COUNT 3.92 10^6/uL (3.72-5.28)
[2019-08-29 04:59] LABS: HEMOGLOBIN 11.7 g/dL (12.0-15.5)
[2019-08-29 05:12] LABS: ANION GAP 6 (5-19); BLOOD UREA NITROGEN 14 mg/dL (7-20); CALCIUM 9.3 mg/dL (8.4-10.2); CARBON DIOXIDE 29 mmol/L (22-30); CHLORIDE 104 mmol/L (98-107); GLUCOSE 148 mg/dL (75-110); POTASSIUM 4.4 mmol/L (3.6-5.0)
[2019-08-29] MEDS: HEPARIN SOD (PORCINE) 5,000 UNIT/ML 1 ML VIAL SUBCUT SCH ×2 (06:04→13:35)
[2019-08-29] MEDS: BUDESONIDE NEB 0.5 MG/2 ML AMPUL NEB SCH (08:30)
[2019-08-29] MEDS: DOCUSATE SODIUM 100 MG CAPSULE PO SCH (09:25)
[2019-08-29] MEDS: GABAPENTIN 300 MG CAPSULE PO PRN ×2 (09:27→14:01)
[2019-08-29] MEDS: FAMOTIDINE 20 MG TABLET PO SCH (09:27)
--- NOTE | 2019-08-29 13:20 | CDI QUERY ---
CDI Query CDI Review: ear Provider: To better reflect your patients severity of illness, morbidity, and resource utilization Please specify and document in the Progress Notes and Discharge Summary if you are m onitoring / treating / evaluating any of the following conditions: Query Clinical indicators Please when known or if suspected, specify the type of pneumonia you are treating: Gram Negative pneumonia Gram Positive pneumonia Aspiration pneumonia Other Unable to determine Please include with your documentation of Severe Protein Calorie Malnutrition this patients BMI Diagnosis: Pneumonia of left lung Treatment: .. aggressive pulmonary toilet utilizing nebulized Xopenex, Atrovent, Pulmicort and Mucomyst. She will complete a bolus dosing of IV Solu- Medrol receiving 40 mg IV every 6 hours x3 doses... treated with IV antibiotics utilizing Rocephin and Zithromax. Patient will have available morphine sulfate 2 mg IV every 1 hour PRN pain or discomfort. Cultures pending. Ht. 5 ft 7 in Wt. 38.7 kg 85.14 lbs BMI 13.4 The terms probable, suspected, likely, possible or still to be ruled out may be used if you are unable to determine the exact nature of a condition. Thank you, Clinical Documentation Physician Advisors REMIGIO Noble RN, BSN RN [email or web address] Office [phone] Office [phone]
[2019-08-29 15:09] VITALS: BP 107/68
--- NOTE | 2019-08-30 15:37 | PDOC DISCHARGE SUMMARY ---
Impression - Admit/DC Date/PCP Admission Date/Primary Care Provider: 08/28/19 03:02 MAILE AMIN Discharge Date: 08/29/19 - Discharge Diagnosis (1) Acute on chronic respiratory failure with hypoxia Is this a current diagnosis for this admission?: Yes (2) COPD exacerbation Is this a current diagnosis for this admission?: Yes (3) Pneumonia involving left lung Is this a current diagnosis for this admission?: Yes (4) Tobacco use disorder, severe, dependence Is this a current diagnosis for this admission?: Yes (5) Severe protein-calorie malnutrition Is this a current diagnosis for this admission?: Yes - Additional Information Resuscitation Status: Full Code Discharge Diet: As Tolerated Discharge Activity: Activity As Tolerated, Balance Activity w/Rest Referrals: STEPHANIE JAMA FNP [Primary Care Provider] - 09/03/19 11:00 am Prescriptions: Varenicline Tartrate [Chantix 1 Mg Tablet] 1 mg PO DAILY 30 Days #30 tablet Prednisone [Deltasone 20 mg Tablet] 40 mg PO DAILY 4 Days #8 tablet Levofloxacin [Levaquin 500 mg Tablet] 500 mg PO DAILY 3 Days #3 tablet Home Medications: Albuterol Sulfate [Proair HFA Inhalation Aerosol 8.5 gm MDI] 2 puff IH Q4HP PRN 08/28/19 Albuterol Sulfate [Ventolin 0.083% Neb 2.5 mg/3 mL Ampul] 2.5 mg NEB RTTIDP PRN 08/28/19 Fluticasone/Umeclidin/Vilanter [Trelegy 100-62.5-25 Mcg Ellipta 14 Dose/Dpi] 1 puff IH DAILY 08/28/19 Gabapentin [Neurontin 300 mg Capsule] 300 mg PO Q8HP PRN 08/28/19 Levofloxacin [Levaquin 500 mg Tablet] 500 mg PO DAILY 3 Days #3 tablet 08/29/19 Prednisone [Deltasone 20 mg Tablet] 40 mg PO DAILY 4 Days #8 tablet 08/29/19 Varenicline Tartrate [Chantix 1 Mg Tablet] 1 mg PO DAILY 30 Days #30 tablet 08/29/19 History of Present Illiness History of Present Illness: As per admitting physician note STAN LINN is a 64 year old female who presented to the emergency room with acute dyspnea. Patient admits developing severe dyspnea over the last 12 hours prior to her arrival in the emergency room. Her dyspnea was accompanied by wheezing and labored breathing requiring use of her accessory muscles of respiration. Her dyspnea was made worse by activity and exertion. Her dyspnea was so severe that it was not responding to use of her home oxygen, home nebulizer treatments and home BiPAP. She further admits in the accompanying symptoms of an upper respiratory infection for the last 2 weeks with a mild nonproductive cough which progressed to a cough productive of small amounts of greenish sputum over the last week. She denies other associated or accompanying signs and symptoms. She admits numerous prior similar episodes related to her COPD. She has not identified any additional aggravating or ameliorating factors for her dyspnea. In the emergency room the patient was treated with BiPAP and was found to have a possible left-sided pneumonia. She was subsequently admitted to the hospital for further evaluation and treatment. Hospital Course Hospital Course: (1) Acute on chronic respiratory failure with hypoxia Due to COPD exacerbation complicated by continued tobacco abuse and possibly community-acquired pneumonia. CXR on admission: subtle parenchymal opacification in the left lung hilar and lower lobe worrisome for pneumonia. Masslike opacification in the left hilum worrisome for neoplasm. CT chest with contrast: Atelectasis and bronchial wall thickening in the li ngular, no focal consolidation or pleural effusion. Severe pulmonary emphysema. Was started on broad-spectrum empiric IV antibiotics, IV steroids, LABA, LABA, ICS, pulmonary toileting, incentive spirometry and flutter valve. Moderate improvement. SPO2 WNL on 2 L. History of oxygen dependent COPD on 2 L nasal cannula. Was discharged on p.o. steroids, antibiotics, LABA, LABA, ICS. Advised to follow-up with PCP and metal cutter. (2) COPD exacerbation As per #1. (3) Pneumonia involving left lung Likely community-acquired due to gram-positive cocci/rods including Streptococcus pneumonia. CXR on admission: subtle parenchymal opacification in the left lung hilar and lower lobe worrisome for pneumonia. Masslike opacification in the left hilum worrisome for neoplasm. CT chest with contrast: Atelectasis and bronchial wall thickening in the lingular, no focal consolidation or pleural effusion. Severe pulmonary emphysema. Was started on empiric IV antibiotics. Sputum and blood culture obtained which stayed negative. Received 2 days of IV antibiotics inpatient. Was discharged on levofloxacin to complete another 3 days. (4) Tobacco use disorder, severe, dependence Extensively advised on quitting. NicoDerm patch provided however did not want to use it as it was causing skin ulceration. Requested Chantix prescription did not want to be placed on NicoDerm patch as it was causing skin irritation. (5) Severe protein-calorie malnutrition Dietary consulted. CT chest with contrast negative for any malignancy. Physical Exam Vital Signs: Temp Pulse Resp BP Pulse Ox 97.4 F 41 L 16 107/68 95 08/29/19 14:58 08/29/19 14:58 08/29/19 14:58 08/29/19 14:58 08/29/19 14:58 Intake & Output 08/29/19 08/30/19 08/31/19 06:59 06:59 06:59 Intake Total 3565 840 Balance 3565 840 Weight 38.7 kg General appearance: PRESENT: no acute distress, thin Head exam: PRESENT: atraumatic, normocephalic Respiratory exam: PRESENT: clear to auscultation ronaldo. ABSENT: rales, rhonchi, wheezes Cardiovascular exam: PRESENT: RRR. ABSENT: diastolic murmur, rubs, systolic murmur GI/Abdominal exam: PRESENT: normal bowel sounds, soft. ABSENT: distended, guarding, mass, organolmegaly, rebound, tenderness Neurological exam: PRESENT: alert, awake, oriented to person, oriented to place, oriented to time, oriented to situation, CN II-XII grossly intact. ABSENT: motor sensory deficit Results Laboratory Results: WBC 18.0 10^3/uL (4.0-10.5) H 08/29/19 04:12 RBC 3.92 10^6/uL (3.72-5.28) 08/29/19 04:12 Hgb 11.7 g/dL (12.0-15.5) L D 08/29/19 04:12 Hct 34.9 % (36.0-47.0) L 08/29/19 04:12 MCV 89 fl (80-97) 08/29/19 04:12 MCH 29.7 pg (27.0-33.4) 08/29/19 04:12 MCHC 33.4 g/dL (32.0-36.0) 08/29/19 04:12 RDW 13.0 % (11.5-14.0) 08/29/19 04:12 Plt Count 218 10^3/uL (150-450) 08/29/19 04:12 Lymph % (Auto) 19.6 % (13-45) 08/28/19 01:07 [place] % (Auto) 11.8 % (3-13) 08/28/19 01:07 Eos % (Auto) 2.0 % (0-6) 08/28/19 01:07 Baso % (Auto) 0.5 % (0-2) 08/28/19 01:07 Absolute Neuts (auto) 9.6 10^3/uL (1.7-8.2) H 08/28/19 01:07 Absolute Lymphs (auto) 2.8 10^3/uL (0.5-4.7) 08/28/19 01:07 Absolute Monos (auto) 1.7 10^3/uL (0.1-1.4) H 08/28/19 01:07 Absolute Eos (auto) 0.3 10^3/uL (0.0-0.6) 08/28/19 01:07 Absolute Basos (auto) 0.1 10^3/uL (0.0-0.2) 08/28/19 01:07 Seg Neutrophils % 66.1 % (42-78) 08/28/19 01:07 VBG pH 7.29 (7.30-7.42) L 08/28/19 01:47 VBG pCO2 61.1 mmHg (35-63) 08/28/19 01:47 VBG HCO3 28.7 mmol/L (20-32) 08/28/19 01:47 VBG Base Excess 0.7 mmol/L 08/28/19 01:47 Sodium 138.9 mmol/L (137-145) 08/29/19 04:12 Potassium 4.4 mmol/L (3.6-5.0) 08/29/19 04:12 Chloride 104 mmol/L (98-107) 08/29/19 04:12 Carbon Dioxide 29 mmol/L (22-30) 08/29/19 04:12 Anion Gap 6 (5-19) 08/29/19 04:12 BUN 14 mg/dL (7-20) 08/29/19 04:12 Creatinine 0.39 mg/dL (0.52-1.25) L 08/29/19 04:12 Est GFR ( Amer) > 60 (>60) 08/29/19 04:12 Est GFR (MDRD) Non-Af > 60 (>60) 08/29/19 04:12 Glucose 148 mg/dL (75-110) H 08/29/19 04:12 Lactic Acid 1.1 mmol/L (0.7-2.1) 08/29/19 13:35 Calcium 9.3 mg/dL (8.4-10.2) 08/29/19 04:12 Total Bilirubin 0.5 mg/dL (0.2-1.3) 08/28/19 01:07 Direct Bilirubin 0.0 mg/dL (0.0-0.4) 08/28/19 01:07 Neonat Total Bilirubin Not Reportable 08/28/19 01:07 Neonat Direct Bilirubin Not Reportable 08/28/19 01:07 Neonat Indirect Bili Not Reportable 08/28/19 01:07 AST 18 U/L (14-36) 08/28/19 01:07 ALT 13 U/L (<35) 08/28/19 01:07 Alkaline Phosphatase 109 U/L (38-126) 08/28/19 01:07 Troponin I < 0.012 ng/mL 08/28/19 01:07 Total Protein 6.8 g/dL (6.3-8.2) 08/28/19 01:07 Albumin 4.0 g/dL (3.5-5.0) 08/28/19 01:07 Urine Color YELLOW 08/28/19 02:32 Urine Appearance CLOUDY 08/28/19 02:32 Urine pH 7.0 (5.0-9.0) 08/28/19 02:32 Ur Specific [place] 1.010 08/28/19 02:32 Urine Protein NEGATIVE mg/dL (NEGATIVE) 08/28/19 02:32 Urine Glucose (UA) NEGATIVE mg/dL (NEGATIVE) 08/28/19 02:32 Urine Ketones NEGATIVE mg/dL (NEGATIVE) 08/28/19 02:32 Urine Blood SMALL (NEGATIVE) H 08/28/19 02:32 Urine Nitrite NEGATIVE (NEGATIVE) 08/28/19 02:32 Urine Bilirubin NEGATIVE (NEGATIVE) 08/28/19 02:32 Urine Urobilinogen 2.0 mg/dL (<2.0) H 08/28/19 02:32 Ur Leukocyte Esterase MODERATE (NEGATIVE) H 08/28/19 02:32 Urine WBC (Auto) 20 /HPF 08/28/19 02:32 Urine RBC (Auto) 5 /HPF 08/28/19 02:32 Urine Bacteria (Auto) TRACE /HPF 08/28/19 02:32 Squamous Epi Cells Auto 1 /HPF 08/28/19 02:32 Urine Mucus (Auto) FEW /LPF 08/28/19 02:32 Urine Ascorbic Acid 20 (NEGATIVE) H 08/28/19 02:32 Influenza A (Rapid) NEGATIVE (NEGATIVE) 08/28/19 02:32 Influenza B (Rapid) NEGATIVE (NEGATIVE) 08/28/19 02:32 Group A Strep Rapid NEGATIVE (NEGATIVE) 08/28/19 01:27 08/28/19 01:07 Troponin I < 0.012 Impressions: Chest CT 08/28/19 00:00 IMPRESSION: 1. Atelectasis and bronchial wall thickening in the lingula. No focal consolidation or pleural effusion. 2. Severe pulmonary emphysema. 3. Prominent pulmonary arteries which can be seen with pulmonary arterial hypertension. Echocardiogram may provide additional information. Chest X-Ray 08/28/19 00:41 IMPRESSION: 1. Hyperinflation. 2. Subtle parenchymal opacification in the left hilar and lower lobe worrisome for pneumonia. 3. Masslike opacification in the left hilum worrisome for neoplasm. This might also just represent a large pulmonary artery. If clinically indicated this could be further evaluated with chest CT with contrast. Stroke Is this a Stroke Patient?: No Acute Heart Failure - Is this a Heart Failure Patient?: No
== END 2019-08-29 15:55 | disposition home or self-care (01) | DRG 193 ==
LOC: ER 00:36 → UNDOADMIN 02:57 → EH 02:57 → 3N 05:44
PROVIDERS: ADMIT Emergency Medicine; ATTEND Internal Medicine
DX: J13 Pneumonia due to Streptococcus pneumoniae (principal); E43 Unspecified severe protein-calorie malnutrition; J96.21 Acute and chronic respiratory failure with hypoxia; Z68.1 Body mass index [BMI] 19.9 or less, adult; J43.9 Emphysema, unspecified; Z99.81 Dependence on supplemental oxygen; F17.210 Nicotine dependence, cigarettes, uncomplicated; Z88.8 Allergy status to other drugs, medicaments and biological substances; Z79.51 Long term (current) use of inhaled steroids; Z71.6 Tobacco abuse counseling; Z79.52 Long term (current) use of systemic steroids
CPT/HCPCS: 36415; 71045; 71260; 80048; 80053; 81001; 82803; 83605; 84484; 85025; 85027; 87040; 87070; 87804; 87880; 93005; 93010; 94640; 94660; 96365; 96368; 96375; 99291; 99292; J0456; J0696; J1100; J1644; J2405; J2920; J3490; J7060; J7120

== ENCOUNTER 2019-10-22 13:31 | Inpatient (IN) | payer MEDICARE, MEDICAID ==
[2019-10-22] MEDS ORDERED: MAGNESIUM SULFATE/D5W 1 GM/100 ML RTUPB IV ONE (13:41)
[2019-10-22] MEDS ORDERED: NORMAL SALINE 500 ML IV ONE (13:50)
[2019-10-22] MEDS: MAGNESIUM SULFATE/D5W 1 GM/100 ML RTUPB IV SCH ×2 (13:50→14:16)
[2019-10-22 14:13] LABS: HEMATOCRIT 35.7 % (36.0-47.0); HEMOGLOBIN 11.9 g/dL (12.0-15.5); MEAN CORPUSCULAR HEMOGLOBIN 29.5 pg (27.0-33.4); MEAN CORPUSCULAR HGB CONC 33.5 g/dL (32.0-36.0); MEAN CORPUSCULAR VOLUME 88 fl (80-97); PLATELET COUNT 380 10^3/uL (150-450); RED BLOOD COUNT 4.04 10^6/uL (3.72-5.28); RED CELL DISTRIBUTION WIDTH 13.7 % (11.5-14.0); WHITE BLOOD COUNT 23.3 10^3/uL (4.0-10.5)
--- NOTE | 2019-10-22 14:15 | RADIOLOGY REPORT (SQ) ---
EXAM DESCRIPTION: CHEST SINGLE VIEW IMAGES COMPLETED DATE/TIME: 10/22/2019 2:02 pm REASON FOR STUDY: sob COMPARISON: AP view of the chest from 08/28/2019. EXAM PARAMETERS: NUMBER OF VIEWS: One view. TECHNIQUE: An AP view of the chest was obtained. RADIATION DOSE: NA LIMITATIONS: None. FINDINGS: LUNGS AND PLEURA: Acute consolidation in the right upper lobe. There is no pleural effusi on or pneumothorax. MEDIASTINUM AND HILAR STRUCTURES: No mediastinal or hilar contour abnormality. HEART AND VASCULAR STRUCTURES: The cardiac silhouette is borderline enlarged. BONES: No acute findings. HARDWARE: None in the chest. OTHER: COPD. IMPRESSION: Acute consolidation in the right upper lobe. Clinical correlation to exclude a pneumoni a is recommended. TECHNICAL DOCUMENTATION: JOB ID: [id number] 2010 [employer]- All Rights Reserved Reading location - IP/workstation name: [email or web address]
[2019-10-22 14:17] LABS: INTERNATIONAL RATION (INR) 1.04; PROTHROMBIN TIME 13.6 SEC (11.4-15.4)
[2019-10-22 14:18] LABS: PARTIAL THROMBOPLASTIN TIME 29.2 SEC (23.5-35.8)
[2019-10-22 14:29] LABS: ALBUMIN 2.9 g/dL (3.5-5.0); ALKALINE PHOSPHATASE 157 U/L (38-126); ANION GAP 5 (5-19); ASPARTATE AMINO TRANSFERASE 32 U/L (14-36); BILIRUBIN,TOTAL 0.5 mg/dL (0.2-1.3); BLOOD UREA NITROGEN 15 mg/dL (7-20); CALCIUM 8.8 mg/dL (8.4-10.2); CARBON DIOXIDE 34 mmol/L (22-30); CHLORIDE 94 mmol/L (98-107); GLUCOSE 173 mg/dL (75-110); POTASSIUM 4.2 mmol/L (3.6-5.0); TOTAL PROTEIN 5.8 g/dL (6.3-8.2)
[2019-10-22 14:36] LABS: ABSOLUTE LYMPHOCYTES# (MANUAL) 1.9 10^3/uL (0.5-4.7); ABSOLUTE MONOCYTES # (MANUAL) 1.4 10^3/uL (0.1-1.4); BASOPHILS % (MANUAL) 0 % (0-2); EOSINOPHILS % (MANUAL) 0 % (0-6); LYMPHOCYTES % (MANUAL) 8 % (13-45); MONOCYTES % (MANUAL) 6 % (3-13); SEGMENTED NEUTROPHILS % (MAN) 86 % (42-78); TOTAL CELLS COUNTED 100
[2019-10-22 14:38] LABS: HYPOCHROMASIA SLIGHT; PLATELET COMMENT ADEQUATE; POLYCHROMASIA SLIGHT
[2019-10-22 14:43] LABS: VENOUS BLOOD BASE EXCESS 5.6 mmol/L; VENOUS BLOOD HCO3 34.3 mmol/L (20-32); VENOUS BLOOD PH 7.29 (7.30-7.42)
[2019-10-22 14:45] LABS: VENOUS BLOOD PCO2 72.7 mmHg (35-63)
[2019-10-22] MEDS ORDERED: CEFEPIME 2 GM/D5W RTU 2 GM/50 ML RTUPB IV ONE (14:58)
[2019-10-22] MEDS ORDERED: VANCOMYCIN HCL INJ 1000 MG VIAL IV ONE (14:59)
--- NOTE | 2019-10-22 15:15 | ER Document Report ---
Entered by JEFF JOHNSTON SCRIBE 10/22/19 1409 Acting as scribe for:CHIKIS GARIBAY MD ED General - General Chief Complaint: Abdominal Pain Stated Complaint: RESPIRATORY DISTRESS Time Seen by Provider: 10/22/19 13:35 Primary Care Provider: STEPHANIE JAMA FNP [Primary Care Provider] - Follow up as needed Information source: Patient, Emergency Med Personnel Notes: This 64-year-old female with COPD presents to the emergency department via EMS complaining of abdominal pain that began about a week ago. Patient mentions that a week ago she stopped taking Oxycodone and believes that all her symptoms "are an allergic reaction to stopping oxycodone". Patient reports a cough with sputum that is white in color for the past few days. EMS reported that the patient was pale on their arrival with lung sounds diminished in the bases. EMS states that her oxygen saturation was 80% and had a temperature of 99.1. EMS administered two nebulizer treatments and 125 mg Solu-Medrol. TRAVEL OUTSIDE OF THE [place] IN LAST 30 DAYS: No - Related Data Allergies/Adverse Reactions: tramadol Allergy (Verified 08/28/19 01:15) Past Medical History - General Information source: Patient - Social History Smoking Status: Current Every Day Smoker Cigarette use (# per day): Yes Chew tobacco use (# tins/day): No Frequency of alcohol use: None Drug Abuse: None Lives with: Family Family History: Hypertension, Malignancy Pulmonary Medical History: Reports: Hx COPD, Hx Pneumonia, Hx Respiratory Failure Past Surgical History: Reports: Hx Hysterectomy, Hx Tonsillectomy Review of Systems - Review of Systems Constitutional: No symptoms reported EENT: No symptoms reported Cardiovascular: No symptoms reported Respiratory: See HPI, Cough, Sputum Gastrointestinal: See HPI, Abdominal pain Genitourinary: No symptoms reported Female Genitourinary: No symptoms reported Musculoskeletal: No symptoms reported Skin: No symptoms reported Hematologic/Lymphatic: No symptoms reported Neurological/Psychological: No symptoms reported -: Yes All other systems reviewed and negative Physical Exam - Vital signs Vitals: Temp 99.1 F 10/22/19 14:12 - Notes Notes: Physical Exam: General: Alert, appears frail. HEENT: Normocephalic. Atraumatic. PERRL. Extraocular movements intact. Oropharynx clear. Neck: Supple. Non-tender. Respiratory: Supraclavicular retractions with breathing. Tachypneic. Breath sounds are diminished in both bases. No wheezing. Patient oxygen saturation was 100% but can drop to 95%. Cardiovascular: Regular rate and rhythm. Abdominal: Normal Inspection. Non-tender. No distension. Normal Bowel Sounds. Back: No gross abnormalities. Extremities: Moves all four extremities. Upper extremities: Normal inspection. Normal ROM. Lower extremities: Normal inspection. No edema. Normal ROM. Neurological: Normal cognition. AAOx4. Normal speech. Psychological: Normal affect. Normal Mood. Skin: Warm. Dry. Normal color. Course - Re-evaluation Re-evalutation: 10/22/19 15:08 Patient remains tachypneic with a respiratory rate around 25 saturations 97% on 4 L nasal O2 EKG rhythm strip shows heart rate of sinus tachycardia at 102. Pat ient's blood pressure is 102/59. - Vital Signs Vital signs: Temp Pulse Resp BP Pulse Ox 99.1 F 10/22/19 14:12 Current vital signs show heart rate of 100 blood pressure 102/59 respiratory rate 26 and saturation 98% on 4 L. - Laboratory Result Diagrams: 10/22/19 13:52 10/22/19 13:52 Laboratory results interpreted by me: 10/22/19 10/22/19 10/22/19 13:52 13:52 13:52 WBC 23.3 H Hgb 11.9 L Hct 35.7 L Seg Neuts % (Manual) 86 H Lymphocytes % (Manual) 8 L Abs Neuts (Manual) 20.0 H VBG pH VBG pCO2 VBG HCO3 Sodium 133.3 L Chloride 94 L Carbon Dioxide 34 H Creatinine 0.38 L Glucose 173 H ALT 45 H Alkaline Phosphatase 157 H NT-Pro-B Natriuret Pep 166 H Total Protein 5.8 L Albumin 2.9 L 10/22/19 13:52 WBC Hgb Hct Seg Neuts % (Manual) Lymphocytes % (Manual) Abs Neuts (Manual) VBG pH 7.29 L VBG pCO2 72.7 H* VBG HCO3 34.3 H Sodium Chloride Carbon Dioxide Creatinine Glucose ALT Alkaline Phosphatase NT-Pro-B Natriuret Pep Total Protein Albumin Leukocytosis consistent with an infection or inflammation. Also venous blood gas with a PCO2 of 72 consistent with COPD with CO2 retention. - Diagnostic Test Radiology reviewed: Image reviewed, Reports reviewed Radiology results interpreted by me: 10/22/19 15:11 Chest x-ray shows COPD and a consolidated infiltrate in the right upper lobe. - EKG Interpretation by Me Additional EKG results interpreted by me: 10/22/19 15:11 1212-lead EKG shows sinus tachycardia rate of 118 with PVCs noted. Nonspecific interventricular conduction delay delay with left axis deviation. Probable inferior infarct age indeterminate lateral infarct old anterior infarct old. Critical Care Note - Critical Care Note Total time excluding time spent on procedures (mins): 41 - Management of respiratory distress, sinus tachycardia, oxygenation management, infection management, IV fluid hydration. Discharge - Discharge Clinical Impression: Tobacco use disorder, severe, dependence Condition: Fair Disposition: ADMITTED INPATIENT Unit Admitted: IMCU Referrals: STEPHANIE JAMA FNP [Primary Care Provider] - Follow up as needed I personally performed the services described in the documentation, reviewed and edited the documentation which was dictated to the scribe in my presence, and it accurately records my words and actions.
[2019-10-22 16:42] LABS: A TYPE INFLUENZA AG NEGATIVE (NEGATIVE); B INFLUENZA AG NEGATIVE (NEGATIVE)
[2019-10-22] MEDS ORDERED: TEMAZEPAM 7.5 MG CAPSULE PO PRN (17:03)
[2019-10-22] MEDS ORDERED: ONDANSETRON 4 MG TAB.RAPDIS PO PRN (17:03)
[2019-10-22] MEDS ORDERED: ACETAMINOPHEN 325 MG TABLET PO PRN (17:03)
[2019-10-22] MEDS ORDERED: GUAIFENESIN/D-METHORPHAN (200-20 MG) SYRUP 10 ML PO PRN (17:09)
--- NOTE | 2019-10-22 17:43 | PDOC H&P ---
History of Present Illness Admission Date/PCP: 10/22/19 16:39 MAILE AMIN Patient complains of: Difficulty breathing and shortness of breath History of Present Illness: STAN LINN is a 64 year old female Who presents to the emergency room with complaints of difficulty breathing and shortness of breath. She was found to be quite hypoxic.She was tachypneic and found to have acute bronchospasm and so she was referred for admission. By the time I saw her she appeared to be much more comfortable in fact was sleeping comfortably in her room. COVID 19 test is currently pending. She had complained of a cough with a whitish sputum and initially she was hypoxic with oxygen saturation of 80% and temperature of 99.1. She received a nebulizer treatment as well as Solu-Medrol in the field prior to arrival in the hospital. Further work-up revealed a white count of 23.3 and chest x-ray revealed a right upper lobe consolidation likely pneumonia. She remained tachypneic at a rate of about 25 with sinus tachycardia and borderline blood pressure of 102/59. Patient is been admitted with sepsis likely secondary to pneumonia and COPD exacerbation Past Medical History Cardiac Medical History: Denies: Atrial Fibrillation, Coronary Artery Disease, Myocardial Infarction, Hyperlipidema, Hypertension Pulmonary Medical History: Reports: Chronic Obstructive Pulmonary Disease (COPD), Pneumonia, Respiratory Failure Denies: Asthma Neurological Medical History: Denies: Seizures Endocrine Medical History: Denies: Diabetes Mellitus Type 1, Diabetes Mellitus Type 2, Hyperthyroidism, Hypothyroidism GI Medical History: Denies: Cirrhosis, Crohn's Disease, Gastroesophageal Reflux Disease, Hepatitis, Ulcerative Colitis Musculoskeltal Medical History: Denies: Arthritis, Gout Skin Medical History: Denies: Eczema, Psoriasis Psychiatric Medical History: Denies: Depression Hematology: Denies: Anemia, Bleeding Tendencies Past Surgical History Past Surgical History: Reports: Hysterectomy, Tonsillectomy Social History Lives with: Family Smoking Status: Current Every Day Smoker Frequency of Alcohol Use: None Hx Recreational Drug Use: No Drugs: None Hx Prescription Drug Abuse: No - Advance Directive Resuscitation Status: Full Code Family History Family History: Hypertension, Malignancy Parental Family History Reviewed: No Children Family History Reviewed: No Sibling(s) Family History Reviewed.: No Medication/Allergy Home Medications: Albuterol Sulfate [Proair HFA Inhalation Aerosol 8.5 gm MDI] 2 puff IH Q4HP PRN 08/28/19 Albuterol Sulfate [Ventolin 0.083% Neb 2.5 mg/3 mL Ampul] 2.5 mg NEB RTTIDP PRN 08/28/19 Fluticasone/Umeclidin/Vilanter [Trelegy 100-62.5-25 Mcg Ellipta 14 Dose/Dpi] 1 puff IH DAILY 08/28/19 Gabapentin [Neurontin 300 mg Capsule] 300 mg PO Q8HP PRN 08/28/19 Levofloxacin [Levaquin 500 mg Tablet] 500 mg PO DAILY 3 Days #3 tablet 08/29/19 Prednisone [Deltasone 20 mg Tablet] 40 mg PO DAILY 4 Days #8 tablet 08/29/19 Varenicline Tartrate [Chantix 1 Mg Tablet] 1 mg PO DAILY 30 Days #30 tablet 08/29/19 Allergies/Adverse Reactions: tramadol Allergy (Verified 08/28/19 01:15) Review of Systems All systems: reviewed and no additional remarkable complaints except as stated Cardiovascular: PRESENT: orthropnea. ABSENT: chest pain Respiratory: PRESENT: dyspnea. ABSENT: cough, hemoptysis Physical Exam Vital Signs: Temp Pulse Resp BP Pulse Ox 98.0 F 26 H 106/62 93 10/22/19 16:30 10/22/19 16:30 10/22/19 16:30 10/22/19 16:30 Intake & Output 10/21/19 10/22/19 10/23/19 06:59 06:59 06:59 Intake Total 250 Balance 250 Weight 35.834 kg General appearance: PRESENT: no acute distress, thin, other - Cachectic looking Head exam: PRESENT: atraumatic, normocephalic Eye exam: PRESENT: conjunctiva pink, EOMI, PERRLA. ABSENT: scleral icterus Mouth exam: PRESENT: moist Neck exam: ABSENT: carotid bruit, JVD, lymphadenopathy, thyromegaly Respiratory exam: PRESENT: decreased breath sounds, unlabored. ABSENT: rales, rhonchi, wheezes Cardiovascular exam: PRESENT: +S1, +S2, tachycardia. ABSENT: diastolic murmur, rubs, systolic murmur Pulses: PRESENT: normal dorsalis pedis pul Vascular exam: PRESENT: normal capillary refill GI/Abdominal exam: PRESENT: normal bowel sounds, soft. ABSENT: distended, guarding, mass, organolmegaly, rebound, tenderness Rectal exam: PRESENT: deferred Extremities exam: PRESENT: full ROM. ABSENT: calf tenderness, clubbing, pedal edema Neurological exam: PRESENT: alert, awake, oriented to person, oriented to place, oriented to time, oriented to situation, CN II-XII grossly intact. ABSENT: motor sensory deficit Psychiatric exam: PRESENT: appropriate affect, normal mood. ABSENT: homicidal ideation, suicidal ideation Skin exam: PRESENT: dry, intact, warm. ABSENT: cyanosis, rash Results Laboratory Results: 10/22/19 13:52 10/22/19 13:52 10/22/19 10/22/19 10/22/19 13:52 13:52 13:52 WBC 23.3 H RBC 4.04 Hgb 11.9 L Hct 35.7 L MCV 88 MCH 29.5 MCHC 33.5 RDW 13.7 Plt Count 380 Seg Neutrophils % Not Reportable VBG pH VBG pCO2 VBG HCO3 VBG Base Excess Sodium 133.3 L Potassium 4.2 Chloride 94 L Carbon Dioxide 34 H Anion Gap 5 BUN 15 Creatinine 0.38 L Est GFR ( Amer) > 60 Glucose 173 H Lactic Acid 1.1 Calcium 8.8 Total Bilirubin 0.5 AST 32 Alkaline Phosphatase 157 H Total Protein 5.8 L Albumin 2.9 L Lipase 55.2 10/22/19 13:52 WBC RBC Hgb Hct MCV MCH MCHC RDW Plt Count Seg Neutrophils % VBG pH 7.29 L VBG pCO2 72.7 H* VBG HCO3 34.3 H VBG Base Excess 5.6 Sodium Potassium Chloride Carbon Dioxide Anion Gap BUN Creatinine Est GFR ( Amer) Glucose Lactic Acid Calcium Total Bilirubin AST Alkaline Phosphatase Total Protein Albumin Lipase 10/22/19 10/22/19 13:52 15:22 Troponin I < 0.012 NT-Pro-B Natriuret Pep 166 H Impressions: Chest X-Ray 10/22/19 13:33 IMPRESSION: Acute consolidation in the right upper lobe. Clinical correlation to exclude a pneumonia is recommended. Assessment and Plan - Diagnosis (1) Acute on chronic respiratory failure with hypoxia Is this a current diagnosis for this admission?: Yes Plan: She does use oxygen at home however she was found to be quite tachypneic on presentation. 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 (6) Tobacco use disorder, severe, dependence Is this a current diagnosis for this admission?: Yes Plan: Smoking cessation counseling - Plan Summary Summary: Will start on Antibiotics and continue to monitor - Time Time Spent with patient: 25-34 minutes Medications reviewed and adjusted accordingly: Yes Anticipated discharge: Home Within: within 72 hours
[2019-10-22] MEDS: ENOXAPARIN SODIUM INJ 40 MG/0.4 ML DISP.SYRIN SUBCUT SCH (18:45)
[2019-10-22] MEDS: FAMOTIDINE 20 MG TABLET PO SCH (23:09)
[2019-10-22] MEDS: METHYLPREDNISOLONE INJ 40 MG/1 ML SDV IV SCH (23:10)
[2019-10-23 03:59] LABS: APPEARANCE,URINE SLIGHTLY-CLOUDY; BILIRUBIN,URINE NEGATIVE (NEGATIVE); COLOR,URINE YELLOW; GLUCOSE, URINE >=500 mg/dL (NEGATIVE); KETONES,URINE NEGATIVE (NEGATIVE); LEUKOCYTE ESTERASE,URINE NEGATIVE (NEGATIVE); NITRITE,URINE NEGATIVE (NEGATIVE); PROTEIN,URINE NEGATIVE (NEGATIVE); URINE SPECIFIC GRAVITY 1.016
[2019-10-23 04:12] LABS: URINE AMPHETAMINES SCREEN NEGATIVE; URINE BARBITURATES SCREEN NEGATIVE; URINE BENZODIAZEPINES SCREEN NEGATIVE; URINE COCAINE SCREEN NEGATIVE; URINE MARIJUANA (THC) SCREEN NEGATIVE; URINE METHADONE SCREEN NEGATIVE; URINE PHENCYCLIDINE SCREEN NEGATIVE
[2019-10-23 05:45] LABS: HEMATOCRIT 30.5 % (36.0-47.0); HEMOGLOBIN 10.3 g/dL (12.0-15.5); MEAN CORPUSCULAR HEMOGLOBIN 29.6 pg (27.0-33.4); MEAN CORPUSCULAR HGB CONC 33.6 g/dL (32.0-36.0); MEAN CORPUSCULAR VOLUME 88 fl (80-97); PLATELET COUNT 355 10^3/uL (150-450); RED BLOOD COUNT 3.47 10^6/uL (3.72-5.28); RED CELL DISTRIBUTION WIDTH 13.4 % (11.5-14.0); WHITE BLOOD COUNT 19.9 10^3/uL (4.0-10.5)
[2019-10-23 06:03] LABS: BLOOD UREA NITROGEN 16 mg/dL (7-20); CALCIUM 8.4 mg/dL (8.4-10.2); CARBON DIOXIDE 34 mmol/L (22-30); CHLORIDE 100 mmol/L (98-107); GLUCOSE 189 mg/dL (75-110); PHOSPHORUS 3.8 mg/dL (2.5-4.5); POTASSIUM 4.8 mmol/L (3.6-5.0)
[2019-10-23] MEDS: METHYLPREDNISOLONE INJ 40 MG/1 ML SDV IV SCH ×4 (06:10→23:07)
[2019-10-23 06:13] LABS: ANION GAP 2 (5-19)
[2019-10-23 06:16] LABS: ABSOLUTE LYMPHOCYTES# (MANUAL) 0.4 10^3/uL (0.5-4.7); ABSOLUTE MONOCYTES # (MANUAL) 0.6 10^3/uL (0.1-1.4); BASOPHILS % (MANUAL) 0 % (0-2); EOSINOPHILS % (MANUAL) 0 % (0-6); LYMPHOCYTES % (MANUAL) 2 % (13-45); MONOCYTES % (MANUAL) 3 % (3-13); SEGMENTED NEUTROPHILS % (MAN) 95 % (42-78); TOTAL CELLS COUNTED 100
[2019-10-23 06:17] LABS: PLATELET COMMENT ADEQUATE; RBC MORPHOLOGY COMMENT NORMO-CYTIC/CHROMIC; TOXIC GRANULATION SLIGHT
[2019-10-23] MEDS: IPRATROPIUM/ALBUTEROL 0.5-2.5 MG/3 ML AMPUL NEB PRN ×2 (07:56→20:22)
[2019-10-23] MEDS: NORMAL SALINE 1000 ML 1,000 ML IV PRN ×2 (08:53→23:09)
[2019-10-23] MEDS: DOCUSATE SODIUM 100 MG CAPSULE PO SCH (09:50)
[2019-10-23] MEDS: AZITHROMYCIN 250 MG TABLET PO SCH (09:50)
[2019-10-23] MEDS: FAMOTIDINE 20 MG TABLET PO SCH ×2 (09:50→23:07)
[2019-10-23] MEDS: CEFTRIAXONE 1 GM/D5W RTU 1 GM/50 ML RTUPB IV SCH (09:51)
[2019-10-23] MEDS: ENOXAPARIN SODIUM INJ 40 MG/0.4 ML DISP.SYRIN SUBCUT SCH (09:55)
--- NOTE | 2019-10-23 12:39 | PDOC PROGRESS REPORT ---
Subjective Progress Note for:: 10/23/19 Subjective:: Patient states that her breathing is better. She does seem to be much more relaxed Reason For Visit: SEPSIS,PNEUMONIA Physical Exam Vital Signs: Temp Pulse Resp BP Pulse Ox 97.4 F 102 H 18 103/61 90 L 10/23/19 11:51 10/23/19 11:51 10/23/19 11:51 10/23/19 11:51 10/23/19 11:51 Intake & Output 10/22/19 10/23/19 10/24/19 06:59 06:59 06:59 Intake Total 972 480 Output Total 200 Balance 972 280 Weight 35.5 kg General appearance: PRESENT: no acute distress, thin, other - Cachectic Head exam: PRESENT: atraumatic, normocephalic Eye exam: PRESENT: conjunctiva pink, EOMI, PERRLA. ABSENT: scleral icterus Mouth exam: PRESENT: moist, tongue midline Neck exam: ABSENT: carotid bruit, JVD, lymphadenopathy, thyromegaly Respiratory exam: PRESENT: clear to auscultation ronaldo, decreased breath sounds, unlabored. ABSENT: rales, rhonchi, wheezes Cardiovascular exam: PRESENT: +S1, +S2, tachycardia. ABSENT: diastolic murmur, rubs, systolic murmur Pulses: PRESENT: normal dorsalis pedis pul Vascular exam: PRESENT: normal capillary refill GI/Abdominal exam: PRESENT: normal bowel sounds, soft. ABSENT: distended, guarding, mass, organolmegaly, rebound, tenderness Rectal exam: PRESENT: deferred Extremities exam: PRESENT: full ROM. ABSENT: calf tenderness, clubbing, pedal edema Musculoskeletal exam: PRESENT: other - Muscle wasting Neurological exam: PRESENT: alert, awake, oriented to person, oriented to place, oriented to time, oriented to situation, CN II-XII grossly intact. ABSENT: motor sensory deficit Psychiatric exam: PRESENT: appropriate affect, normal mood. ABSENT: homicidal ideation, suicidal ideation Skin exam: PRESENT: dry, intact, warm. ABSENT: cyanosis, rash Results Laboratory Results: 10/23/19 05:35 10/23/19 05:35 10/22/19 10/22/19 10/22/19 13:52 13:52 13:52 WBC 23.3 H RBC 4.04 Hgb 11.9 L Hct 35.7 L MCV 88 MCH 29.5 MCHC 33.5 RDW 13.7 Plt Count 380 Seg Neutrophils % Not Reportable VBG pH VBG pCO2 VBG HCO3 VBG Base Excess Sodium 133.3 L Potassium 4.2 Chloride 94 L Carbon Dioxide 34 H Anion Gap 5 BUN 15 Creatinine 0.38 L Est GFR ( Amer) > 60 Glucose 173 H Lactic Acid 1.1 Calcium 8.8 Phosphorus Total Bilirubin 0.5 AST 32 Alkaline Phosphatase 157 H Total Protein 5.8 L Albumin 2.9 L Lipase 55.2 Urine Color Urine Appearance Urine pH Ur Specific [place] Urine Protein Urine Glucose (UA) Urine Ketones Urine Blood Urine Nitrite Ur Leukocyte Esterase Urine WBC (Auto) Urine RBC (Auto) 10/22/19 10/23/19 10/23/19 13:52 03:30 05:35 WBC 19.9 H RBC 3.47 L Hgb 10.3 L Hct 30.5 L MCV 88 MCH 29.6 MCHC 33.6 RDW 13.4 Plt Count 355 Seg Neutrophils % Not Reportable VBG pH 7.29 L VBG pCO2 72.7 H* VBG HCO3 34.3 H VBG Base Excess 5.6 Sodium Potassium Chloride Carbon Dioxide Anion Gap BUN Creatinine Est GFR ( Amer) Glucose Lactic Acid Calcium Phosphorus Total Bilirubin AST Alkaline Phosphatase Total Protein Albumin Lipase Urine Color YELLOW Urine Appearance SLIGHTLY-CLOUDY Urine pH 6.0 Ur Specific [place] 1.016 Urine Protein NEGATIVE Urine Glucose (UA) >=500 H Urine Ketones NEGATIVE Urine Blood NEGATIVE Urine Nitrite NEGATIVE Ur Leukocyte Esterase NEGATIVE Urine WBC (Auto) 2 Urine RBC (Auto) 6 10/23/19 05:35 WBC RBC Hgb Hct MCV MCH MCHC RDW Plt Count Seg Neutrophils % VBG pH VBG pCO2 VBG HCO3 VBG Base Excess Sodium 136.1 L Potassium 4.8 Chloride 100 Carbon Dioxide 34 H Anion Gap 2 L BUN 16 Creatinine 0.32 L Est GFR ( Amer) > 60 Glucose 189 H Lactic Acid Calcium 8.4 Phosphorus 3.8 Total Bilirubin AST Alkaline Phosphatase Total Protein Albumin Lipase Urine Color Urine Appearance Urine pH Ur Specific [place] Urine Protein Urine Glucose (UA) Urine Ketones Urine Blood Urine Nitrite Ur Leukocyte Esterase Urine WBC (Auto) Urine RBC (Auto) 10/22/19 10/22/19 13:52 15:22 Troponin I < 0.012 NT-Pro-B Natriuret Pep 166 H Impressions: Chest X-Ray 10/22/19 13:33 IMPRESSION: Acute consolidation in the right upper lobe. Clinical correlation to exclude a pneumonia is recommended. Assessment and Plan - Diagnosis (1) Acute on chronic respiratory failure with hypoxia Is this a current diagnosis for this admission?: Yes Plan: Secondary to pneumonia and COPD exacerbation, improved (2) COPD exacerbation Is this a current diagnosis for this admission?: Yes Plan: Improved. We will taper her steroids to 40 mg every 8 hours (3) Pneumonia Is this a current diagnosis for this admission?: Yes Plan: Continue with ceftriaxone and Zithromax day 2. 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 Will consult dietitian for recomme ndations (5) Sepsis Is this a current diagnosis for this admission?: Yes Plan: Secondary to pneumonia (6) Tobacco use disorder, severe, dependence Is this a current diagnosis for this admission?: Yes Plan: Smoking cessation counseling - Plan Summary Summary: Continue current antibiotics, bronchodilators as well as steroids
[2019-10-23] MEDS: OXYCODONE-ACETAMINOPHEN 5-325 MG TABLET PO PRN (20:59)
[2019-10-23] MEDS: GABAPENTIN 300 MG CAPSULE PO SCH (23:07)
[2019-10-24] MEDS: IPRATROPIUM/ALBUTEROL 0.5-2.5 MG/3 ML AMPUL NEB PRN ×3 (02:21→22:13)
[2019-10-24] MEDS: METHYLPREDNISOLONE INJ 40 MG/1 ML SDV IV SCH ×2 (05:33→19:52)
[2019-10-24] MEDS: NORMAL SALINE 1000 ML 1,000 ML IV PRN (05:33)
[2019-10-24 06:58] LABS: HEMATOCRIT 31.9 % (36.0-47.0); HEMOGLOBIN 10.6 g/dL (12.0-15.5); MEAN CORPUSCULAR HEMOGLOBIN 29.6 pg (27.0-33.4); MEAN CORPUSCULAR HGB CONC 33.3 g/dL (32.0-36.0); MEAN CORPUSCULAR VOLUME 89 fl (80-97); PLATELET COUNT 429 10^3/uL (150-450); RED BLOOD COUNT 3.59 10^6/uL (3.72-5.28); RED CELL DISTRIBUTION WIDTH 13.3 % (11.5-14.0)
[2019-10-24 07:21] LABS: BASOPHILS % (MANUAL) 0 % (0-2); EOSINOPHILS % (MANUAL) 0 % (0-6); LYMPHOCYTES % (MANUAL) 6 % (13-45); MONOCYTES % (MANUAL) 0 % (3-13); SEGMENTED NEUTROPHILS % (MAN) 92 % (42-78); TOTAL CELLS COUNTED 100
[2019-10-24 07:22] LABS: PLATELET COMMENT ADEQUATE; RBC MORPHOLOGY COMMENT NORMO-CYTIC/CHROMIC
[2019-10-24] MEDS: GABAPENTIN 300 MG CAPSULE PO SCH ×2 (10:43→21:08)
[2019-10-24] MEDS: FAMOTIDINE 20 MG TABLET PO SCH ×2 (10:43→21:08)
[2019-10-24] MEDS: DOCUSATE SODIUM 100 MG CAPSULE PO SCH (10:43)
[2019-10-24] MEDS: AZITHROMYCIN 250 MG TABLET PO SCH (10:43)
[2019-10-24] MEDS: CEFTRIAXONE 1 GM/D5W RTU 1 GM/50 ML RTUPB IV SCH (10:47)
[2019-10-24] MEDS: ENOXAPARIN SODIUM INJ 40 MG/0.4 ML DISP.SYRIN SUBCUT SCH (10:47)
--- NOTE | 2019-10-24 11:10 | PDOC PROGRESS REPORT ---
Subjective Progress Note for:: 10/24/19 Subjective:: Patient states that her breathing is better. She does seem to be much more relaxed She is sleeping comfortably but easily arousable Reason For Visit: SEPSIS,PNEUMONIA Physical Exam Vital Signs: Temp Pulse Resp BP Pulse Ox 97.7 F 91 22 H 108/56 L 99 10/24/19 07:35 10/24/19 07:35 10/24/19 07:35 10/24/19 07:35 10/24/19 07:35 Intake & Output 10/23/19 10/24/19 10/25/19 06:59 06:59 06:59 Intake Total 972 2890 Output Total 500 Balance 972 2390 Weight 35.5 kg 41.6 kg General appearance: PRESENT: no acute distress, thin Head exam: PRESENT: normocephalic Eye exam: PRESENT: conjunctiva pink, EOMI. ABSENT: scleral icterus Ear exam: PRESENT: normal external ear exam Mouth exam: PRESENT: tongue midline Neck exam: ABSENT: carotid bruit, JVD, lymphadenopathy, thyromegaly Respiratory exam: PRESENT: clear to auscultation ronaldo, decreased breath sounds, rhonchi, unlabored. ABSENT: rales, wheezes Cardiovascular exam: PRESENT: RRR, +S1, +S2. ABSENT: diastolic murmur, rubs, systolic murmur Pulses: PRESENT: normal dorsalis pedis pul GI/Abdominal exam: PRESENT: normal bowel sounds, soft. ABSENT: distended, guarding, mass, organolmegaly, rebound, tenderness Rectal exam: PRESENT: deferred Extremities exam: PRESENT: full ROM. ABSENT: calf tenderness, clubbing, pedal edema Neurological exam: PRESENT: alert, awake, oriented to person, oriented to place, oriented to time, oriented to situation, CN II-XII grossly intact. ABSENT: motor sensory deficit Psychiatric exam: PRESENT: appropriate affect, normal mood. ABSENT: homicidal ideation, suicidal ideation Skin exam: PRESENT: dry, intact, warm. ABSENT: cyanosis, rash Results Laboratory Results: 10/24/19 06:35 10/23/19 05:35 10/24/19 06:35 WBC 25.0 H RBC 3.59 L Hgb 10.6 L Hct 31.9 L MCV 89 MCH 29.6 MCHC 33.3 RDW 13.3 Plt Count 429 Seg Neutrophils % Not Reportable 10/22/19 10/22/19 13:52 15:22 Troponin I < 0.012 NT-Pro-B Natriuret Pep 166 H Impressions: Chest X-Ray 10/22/19 13:33 IMPRESSION: Acute consolidation in the right upper lobe. Clinical correlation to exclude a pneumonia is recommended. Assessment and Plan - Diagnosis (1) Acute on chronic respiratory failure with hypoxia Is this a current diagnosis for this admission?: Yes Plan: Secondary to pneumonia and COPD exacerbation, improved She is being tapered down on her oxygen (2) COPD exacerbation Is this a current diagnosis for this admission?: Yes Plan: Taper steroids as tolerated (3) Pneumonia Is this a current diagnosis for this admission?: Yes Plan: Continue Ceftriaxone and Zmax Patient is clinically improved (4) Severe protein-calorie malnutrition Is this a current diagnosis for this admission?: Yes Plan: Nutritional supplements (5) Sepsis Is this a current diagnosis for this admission?: Yes (6) Tobacco use disorder, severe, dependence Is this a current diagnosis for this admission?: Yes Plan: Smoking cessation counseling - Plan Summary Summary: Continue current antibiotics, bronchodilators as well as steroids Leukocytosis likely from steroid as she is clinically improved. Will taper steroids, recheck wbc in am - Time Time Spent with patient: 15-24 minutes Smoking Cessation Education: 3 to 10 minutes Medications reviewed and adjusted accordingly: Yes Anticipated discharge: Home Within: within 72 hours
[2019-10-24] MEDS: OXYCODONE-ACETAMINOPHEN 5-325 MG TABLET PO PRN (16:44)
[2019-10-25] MEDS: OXYCODONE-ACETAMINOPHEN 5-325 MG TABLET PO PRN (01:21)
[2019-10-25 05:20] LABS: HEMATOCRIT 32.7 % (36.0-47.0); HEMOGLOBIN 10.7 g/dL (12.0-15.5); MEAN CORPUSCULAR HGB CONC 32.7 g/dL (32.0-36.0); MEAN CORPUSCULAR VOLUME 89 fl (80-97); PLATELET COUNT 433 10^3/uL (150-450); RED BLOOD COUNT 3.68 10^6/uL (3.72-5.28); RED CELL DISTRIBUTION WIDTH 13.8 % (11.5-14.0); WHITE BLOOD COUNT 28.3 10^3/uL (4.0-10.5)
[2019-10-25] MEDS: METHYLPREDNISOLONE INJ 40 MG/1 ML SDV IV SCH (05:31)
[2019-10-25 05:35] LABS: BLOOD UREA NITROGEN 16 mg/dL (7-20); CALCIUM 8.5 mg/dL (8.4-10.2); CHLORIDE 91 mmol/L (98-107); GLUCOSE 163 mg/dL (75-110); POTASSIUM 4.5 mmol/L (3.6-5.0)
[2019-10-25] MEDS: NORMAL SALINE 1000 ML 1,000 ML IV PRN (05:35)
[2019-10-25 05:45] LABS: ANION GAP 4 (5-19)
[2019-10-25 05:46] LABS: CARBON DIOXIDE 40 mmol/L (22-30)
[2019-10-25 05:48] LABS: ABSOLUTE LYMPHOCYTES# (MANUAL) 0.8 10^3/uL (0.5-4.7); ABSOLUTE MONOCYTES # (MANUAL) 1.1 10^3/uL (0.1-1.4); BASOPHILS % (MANUAL) 0 % (0-2); EOSINOPHILS % (MANUAL) 0 % (0-6); LYMPHOCYTES % (MANUAL) 3 % (13-45); MONOCYTES % (MANUAL) 4 % (3-13); SEGMENTED NEUTROPHILS % (MAN) 93 % (42-78); TOTAL CELLS COUNTED 100
[2019-10-25 05:49] LABS: HYPERSEGMENTED NEUTROPHILS PRESENT; PLATELET COMMENT ADEQUATE; RBC MORPHOLOGY COMMENT NORMO-CYTIC/CHROMIC
[2019-10-25] MEDS: IPRATROPIUM/ALBUTEROL 0.5-2.5 MG/3 ML AMPUL NEB PRN ×3 (06:38→17:59)
[2019-10-25] MEDS: FAMOTIDINE 20 MG TABLET PO SCH ×2 (09:41→22:22)
[2019-10-25] MEDS: AZITHROMYCIN 250 MG TABLET PO SCH (09:41)
[2019-10-25] MEDS: GABAPENTIN 300 MG CAPSULE PO SCH ×2 (09:41→22:22)
[2019-10-25] MEDS: DOCUSATE SODIUM 100 MG CAPSULE PO SCH (09:42)
[2019-10-25] MEDS: ENOXAPARIN SODIUM INJ 40 MG/0.4 ML DISP.SYRIN SUBCUT SCH (09:42)
[2019-10-25] MEDS: CEFTRIAXONE 1 GM/D5W RTU 1 GM/50 ML RTUPB IV SCH (09:42)
[2019-10-25 12:48] LABS: BLOOD UREA NITROGEN 17 mg/dL (7-20); CALCIUM 8.8 mg/dL (8.4-10.2); CHLORIDE 89 mmol/L (98-107); GLUCOSE 126 mg/dL (75-110); POTASSIUM 4.6 mmol/L (3.6-5.0)
[2019-10-25 13:03] LABS: ANION GAP 4 (5-19)
[2019-10-25 13:04] LABS: CARBON DIOXIDE 43 mmol/L (22-30)
[2019-10-25] MEDS: PREDNISONE 20 MG TABLET PO SCH (17:19)
[2019-10-25] MEDS ORDERED: ALBUTEROL SULFATE HFA (90 MCG/PUFF) 200 PUFF/8.5 GM MDI IH PRN (19:43)
[2019-10-25] MEDS ORDERED: ALBUTEROL SULFATE HFA (90 MCG/PUFF) 8 GM MDI IH ONE (22:06)
[2019-10-25] MEDS ORDERED: ALBUTEROL SULFATE HFA (90 MCG/PUFF) 8 GM MDI IH PRN (22:07)
[2019-10-26 05:58] LABS: HEMATOCRIT 31.8 % (36.0-47.0); HEMOGLOBIN 10.6 g/dL (12.0-15.5); MEAN CORPUSCULAR HEMOGLOBIN 29.1 pg (27.0-33.4); MEAN CORPUSCULAR HGB CONC 33.5 g/dL (32.0-36.0); MEAN CORPUSCULAR VOLUME 87 fl (80-97); PLATELET COUNT 471 10^3/uL (150-450); RED BLOOD COUNT 3.65 10^6/uL (3.72-5.28); RED CELL DISTRIBUTION WIDTH 13.6 % (11.5-14.0); WHITE BLOOD COUNT 25.8 10^3/uL (4.0-10.5)
[2019-10-26 06:38] LABS: ABSOLUTE LYMPHOCYTES# (MANUAL) 1.3 10^3/uL (0.5-4.7); ABSOLUTE MONOCYTES # (MANUAL) 0.8 10^3/uL (0.1-1.4); BAND NEUTROPHILS % (MANUAL) 2 % (3-5); BASOPHILS % (MANUAL) 0 % (0-2); EOSINOPHILS % (MANUAL) 0 % (0-6); LYMPHOCYTES % (MANUAL) 5 % (13-45); MONOCYTES % (MANUAL) 3 % (3-13); SEGMENTED NEUTROPHILS % (MAN) 90 % (42-78); TOTAL CELLS COUNTED 100
[2019-10-26 06:39] LABS: OVALOCYTES SLIGHT; PLATELET COMMENT ADEQUATE; POIKILOCYTOSIS SLIGHT; POLYCHROMASIA SLIGHT; SCHISTOCYTES SLIGHT; TOXIC GRANULATION SLIGHT
[2019-10-26] MEDS: IPRATROPIUM/ALBUTEROL 0.5-2.5 MG/3 ML AMPUL NEB PRN ×2 (08:35→20:52)
--- NOTE | 2019-10-26 10:41 | PDOC PROGRESS REPORT ---
Subjective Subjective:: Patient states that her breathing is better. She does seem to be much more relaxed Reason For Visit: SEPSIS,PNEUMONIA Physical Exam Vital Signs: Temp Pulse Resp BP Pulse Ox 98.6 F 116 H 22 H 116/65 90 L 10/26/19 07:38 10/26/19 07:38 10/26/19 07:38 10/26/19 07:38 10/26/19 07:38 Intake & Output 10/25/19 10/26/19 10/27/19 06:59 06:59 06:59 Intake Total 2310 2310 Output Total 2900 3300 Balance -590 -990 Weight 39.3 kg 36.7 kg General appearance: PRESENT: no acute distress, thin Head exam: PRESENT: atraumatic, normocephalic Eye exam: PRESENT: conjunctiva pink, PERRLA. ABSENT: scleral icterus Ear exam: PRESENT: normal external ear exam Mouth exam: PRESENT: moist, tongue midline Neck exam: ABSENT: carotid bruit, JVD, lymphadenopathy, thyromegaly Respiratory exam: PRESENT: decreased breath sounds, rhonchi. ABSENT: rales, wheezes Cardiovascular exam: PRESENT: RRR. ABSENT: diastolic murmur, rubs, systolic murmur Pulses: PRESENT: normal dorsalis pedis pul Vascular exam: PRESENT: normal capillary refill GI/Abdominal exam: PRESENT: normal bowel sounds, soft. ABSENT: distended, guarding, mass, organolmegaly, rebound, tenderness Rectal exam: PRESENT: deferred Extremities exam: PRESENT: full ROM. ABSENT: calf tenderness, clubbing, pedal edema Neurological exam: PRESENT: alert, awake, oriented to person, oriented to place, oriented to time, oriented to situation, CN II-XII grossly intact. ABSENT: motor sensory deficit Psychiatric exam: ABSENT: homicidal ideation, suicidal ideation Skin exam: PRESENT: dry, intact, warm. ABSENT: cyanosis, rash Results Laboratory Results: 10/26/19 05:21 10/25/19 12:11 10/25/19 10/26/19 12:11 05:21 WBC 25.8 H RBC 3.65 L Hgb 10.6 L Hct 31.8 L MCV 87 MCH 29.1 MCHC 33.5 RDW 13.6 Plt Count 471 H Seg Neutrophils % Not Reportable Sodium 136.1 L Potassium 4.6 Chloride 89 L Carbon Dioxide 43 H* Anion Gap 4 L BUN 17 Creatinine 0.45 L Est GFR ( Amer) > 60 Glucose 126 H Calcium 8.8 10/22/19 10/22/19 13:52 15:22 Troponin I < 0.012 NT-Pro-B Natriuret Pep 166 H Impressions: Chest X-Ray 10/22/19 13:33 IMPRESSION: Acute consolidation in the right upper lobe. Clinical correlation to exclude a pneumonia is recommended. Assessment and Plan - Diagnosis (1) Acute on chronic respiratory failure with hypoxia Is this a current diagnosis for this admission?: Yes Plan: Secondary to pneumonia and COPD exacerbation, improved She is being tapered down on her oxygen (2) COPD exacerbation Is this a current diagnosis for this admission?: Yes Plan: Continue to Taper steroids as tolerated (3) Pneumonia Is this a current diagnosis for this admission?: Yes (4) Severe protein-calorie malnutrition Is this a current diagnosis for this admission?: Yes Plan: Nutritional supplements (5) Sepsis Is this a current diagnosis for this admission?: Yes Plan: Secondary to pneumonia, resolving (6) Tobacco use disorder, severe, dependence Is this a current diagnosis for this admission?: Yes Plan: Smoking cessation counseling - Plan Summary Summary: Continue current antibiotics, bronchodilators as well as steroids Leukocytosis likely from steroid as she is clinically improved. Will continue to taper steroids, recheck wbc in am Due to her tenuous respiratory status we will keep her overnight, monitor breathing and recheck WBC.
--- NOTE | 2019-10-26 10:42 | PDOC PROGRESS REPORT ---
Subjective Progress Note for:: 10/25/19 Subjective:: Patient states that her breathing is better. She does seem to be much more relaxed Reason For Visit: SEPSIS,PNEUMONIA Physical Exam Vital Signs: Temp Pulse Resp BP Pulse Ox 98.6 F 116 H 22 H 116/65 90 L 10/26/19 07:38 10/26/19 07:38 10/26/19 07:38 10/26/19 07:38 10/26/19 07:38 Intake & Output 10/25/19 10/26/19 10/27/19 06:59 06:59 06:59 Intake Total 2310 2310 Output Total 2900 3300 Balance -590 -990 Weight 39.3 kg 36.7 kg General appearance: PRESENT: no acute distress, thin Head exam: PRESENT: atraumatic, normocephalic Eye exam: PRESENT: conjunctiva pink, EOMI, PERRLA. ABSENT: scleral icterus Ear exam: PRESENT: normal external ear exam Mouth exam: PRESENT: moist, tongue midline Neck exam: ABSENT: carotid bruit, JVD, lymphadenopathy, thyromegaly Respiratory exam: PRESENT: decreased breath sounds, rhonchi. ABSENT: rales, wheezes Cardiovascular exam: PRESENT: RRR, +S1, +S2. ABSENT: diastolic murmur, rubs, systolic murmur Pulses: PRESENT: normal dorsalis pedis pul Vascular exam: PRESENT: normal capillary refill GI/Abdominal exam: PRESENT: normal bowel sounds, soft. ABSENT: distended, guarding, mass, organolmegaly, rebound, tenderness Rectal exam: PRESENT: deferred Extremities exam: PRESENT: full ROM. ABSENT: calf tenderness, clubbing, pedal edema Neurological exam: PRESENT: alert, awake, oriented to person, oriented to place, oriented to time, oriented to situation, CN II-XII grossly intact. ABSENT: motor sensory deficit Psychiatric exam: PRESENT: appropriate affect, normal mood. ABSENT: homicidal ideation, suicidal ideation Skin exam: PRESENT: dry, intact, warm. ABSENT: cyanosis, rash Results Laboratory Results: 10/26/19 05:21 10/25/19 12:11 10/25/19 10/26/19 12:11 05:21 WBC 25.8 H RBC 3.65 L Hgb 10.6 L Hct 31.8 L MCV 87 MCH 29.1 MCHC 33.5 RDW 13.6 Plt Count 471 H Seg Neutrophils % Not Reportable Sodium 136.1 L Potassium 4.6 Chloride 89 L Carbon Dioxide 43 H* Anion Gap 4 L BUN 17 Creatinine 0.45 L Est GFR ( Amer) > 60 Glucose 126 H Calcium 8.8 10/22/19 10/22/19 13:52 15:22 Troponin I < 0.012 NT-Pro-B Natriuret Pep 166 H Impressions: Chest X-Ray 10/22/19 13:33 IMPRESSION: Acute consolidation in the right upper lobe. Clinical correlation to exclude a pneumonia is recommended. Assessment and Plan - Diagnosis (1) Acute on chronic respiratory failure with hypoxia Is this a current diagnosis for this admission?: Yes (2) COPD exacerbation Is this a current diagnosis for this admission?: Yes (3) Pneumonia Is this a current diagnosis for this admission?: Yes (4) Severe protein-calorie malnutrition Is this a current diagnosis for this admission?: Yes (5) Sepsis Is this a current diagnosis for this admission?: Yes (6) Tobacco use disorder, severe, dependence Is this a current diagnosis for this admission?: Yes - Plan Summary Summary: Continue current antibiotics, bronchodilators as well as steroids Taper as per response
[2019-10-26] MEDS: DOCUSATE SODIUM 100 MG CAPSULE PO SCH (11:11)
[2019-10-26] MEDS: CEFTRIAXONE 1 GM/D5W RTU 1 GM/50 ML RTUPB IV SCH (11:12)
[2019-10-26] MEDS: ENOXAPARIN SODIUM INJ 40 MG/0.4 ML DISP.SYRIN SUBCUT SCH (11:13)
[2019-10-26] MEDS: FAMOTIDINE 20 MG TABLET PO SCH ×2 (11:13→22:20)
[2019-10-26] MEDS: AZITHROMYCIN 250 MG TABLET PO SCH (11:13)
[2019-10-26] MEDS: GABAPENTIN 300 MG CAPSULE PO SCH ×2 (11:13→22:20)
[2019-10-26] MEDS: PREDNISONE 20 MG TABLET PO SCH ×2 (11:13→17:38)
[2019-10-26] MEDS: FLUTICASONE/UMECLIDIN/VILANTER 100-62.5-25 MCG/DOSE IH SCH (12:20)
[2019-10-27 03:06] LABS: ARTERIAL BLOOD BASE EXCESS 13.3 mmol/L; ARTERIAL BLOOD H2CO3 1.76 mmol/L (1.05-1.35); ARTERIAL BLOOD HCO3 39.4 mmol/L (20-24); ARTERIAL BLOOD O2 SATURATION 93.6 % (94-98); ARTERIAL BLOOD PCO2 58.4 mmHg (35-45); ARTERIAL BLOOD PH 7.45 (7.35-7.45); ARTERIAL BLOOD PO2 67.1 mmHg (80-100); ARTERIAL BLOOD TOTAL CO2 41.2 mmol/L (21-25)
[2019-10-27 03:07] LABS: ARTERIAL BLOOD FIO2 32%
[2019-10-27 06:09] LABS: HEMATOCRIT 31.3 % (36.0-47.0); HEMOGLOBIN 10.5 g/dL (12.0-15.5); MEAN CORPUSCULAR HEMOGLOBIN 29.6 pg (27.0-33.4); MEAN CORPUSCULAR HGB CONC 33.5 g/dL (32.0-36.0); MEAN CORPUSCULAR VOLUME 88 fl (80-97); PLATELET COUNT 456 10^3/uL (150-450); RED BLOOD COUNT 3.54 10^6/uL (3.72-5.28); RED CELL DISTRIBUTION WIDTH 13.8 % (11.5-14.0); WHITE BLOOD COUNT 23.5 10^3/uL (4.0-10.5)
[2019-10-27 06:31] LABS: BLOOD UREA NITROGEN 23 mg/dL (7-20); CALCIUM 8.6 mg/dL (8.4-10.2); CHLORIDE 91 mmol/L (98-107); GLUCOSE 193 mg/dL (75-110); POTASSIUM 4.5 mmol/L (3.6-5.0)
[2019-10-27 06:34] LABS: ABSOLUTE LYMPHOCYTES# (MANUAL) 0.5 10^3/uL (0.5-4.7); ABSOLUTE MONOCYTES # (MANUAL) 0.5 10^3/uL (0.1-1.4); BASOPHILS % (MANUAL) 0 % (0-2); EOSINOPHILS % (MANUAL) 0 % (0-6); LYMPHOCYTES % (MANUAL) 2 % (13-45); MONOCYTES % (MANUAL) 2 % (3-13); SEGMENTED NEUTROPHILS % (MAN) 96 % (42-78); TOTAL CELLS COUNTED 100
[2019-10-27 06:36] LABS: OVALOCYTES SLIGHT; PLATELET COMMENT ADEQUATE; POIKILOCYTOSIS SLIGHT; POLYCHROMASIA SLIGHT; SCHISTOCYTES SLIGHT; TEAR DROP CELLS SLIGHT; TOXIC GRANULATION 1+
[2019-10-27 06:55] LABS: ANION GAP 4 (5-19)
[2019-10-27 06:58] LABS: CARBON DIOXIDE 40 mmol/L (22-30)
--- NOTE | 2019-10-27 07:08 | EKG REPORT ---
SEVERITY:- ABNORMAL ECG - SINUS RHYTHM SHORT UT INTERVAL, ACCELERATED AV CONDUCTION RIGHT ATRIAL ABNORMALITY BORDERLINE RIGHT AXIS DEVIATION BORDERLINE R WAVE PROGRESSION, ANTERIOR LEADS : Confirmed by: Desmond Terry 27-Oct-2019 07:07:35
[2019-10-27] MEDS: DOCUSATE SODIUM 100 MG CAPSULE PO SCH (09:17)
[2019-10-27] MEDS: ENOXAPARIN SODIUM INJ 40 MG/0.4 ML DISP.SYRIN SUBCUT SCH (09:17)
[2019-10-27] MEDS: FLUTICASONE/UMECLIDIN/VILANTER 100-62.5-25 MCG/DOSE IH SCH (10:04)
[2019-10-27] MEDS: GABAPENTIN 300 MG CAPSULE PO SCH (10:05)
[2019-10-27] MEDS: AZITHROMYCIN 250 MG TABLET PO SCH (10:05)
[2019-10-27] MEDS: PREDNISONE 20 MG TABLET PO SCH (10:05)
[2019-10-27] MEDS: CEFTRIAXONE 1 GM/D5W RTU 1 GM/50 ML RTUPB IV SCH (10:06)
[2019-10-27] MEDS: FAMOTIDINE 20 MG TABLET PO SCH (10:06)
--- NOTE | 2019-10-27 10:06 | PDOC DISCHARGE SUMMARY ---
Impression - Admit/DC Date/PCP Admission Date/Primary Care Provider: 10/22/19 16:39 MAILE AMIN Discharge Date: 10/27/19 - Discharge Diagnosis (1) Acute on chronic respiratory failure with hypoxia Is this a current diagnosis for this admission?: Yes (2) COPD exacerbation Is this a current diagnosis for this admission?: Yes (3) Pneumonia Is this a current diagnosis for this admission?: Yes (4) Severe protein-calorie malnutrition Is this a current diagnosis for this admission?: Yes (5) Sepsis Is this a current diagnosis for this admission?: Yes (6) Tobacco use disorder, severe, dependence Is this a current diagnosis for this admission?: Yes (7) Leukocytosis Is this a current diagnosis for this admission?: Yes - Assessment Summary: Continue current antibiotics, bronchodilators as well as steroids Taper as per response - Additional Information Resuscitation Status: Full Code Discharge Diet: As Tolerated Discharge Activity: Activity As Tolerated Referrals: STEPHANIE JAMA FNP [Primary Care Provider] - 10/30/19 10:45 am (Please obtain follow up CBC to document resolution to baseline) Prescriptions: Cefuroxime Axetil [Ceftin 500 mg Tablet] 1 tab PO BID #7 tablet Prednisone [Deltasone 20 mg Tablet] 40 mg PO DAILY #6 tablet Methyl Salicylate/Menthol [Salonpas Patch] 1 each TP DAILY #7 adh..patch Home Medications: Albuterol Sulfate [Proair HFA Inhalation Aerosol 8.5 gm MDI] 2 puff IH Q4HP PRN 08/28/19 Albuterol Sulfate [Ventolin 0.083% Neb 2.5 mg/3 mL Ampul] 2.5 mg NEB RTTIDP PRN 08/28/19 Fluticasone/Umeclidin/Vilanter [Trelegy 100-62.5-25 Mcg Ellipta 14 Dose/Dpi] 1 puff IH QAM 08/28/19 Gabapentin [Neurontin 300 mg Capsule] 600 mg PO QAM 08/28/19 Gabapentin [Neurontin 300 mg Capsule] 300 mg PO BIDPCLS 10/23/19 Cefuroxime Axetil [Ceftin 500 mg Tablet] 1 tab PO BID #7 tablet 10/27/19 Guaifenesin/D-Methorphan Hb [Robitussin-Dm Syrup 10 ml Udcup] 10 ml PO QIDP PRN syrup 10/27/19 Methyl Salicylate/Menthol [Salonpas Patch] 1 each TP DAILY #7 adh..patch 10/27/19 Prednisone [Deltasone 20 mg Tablet] 40 mg PO DAILY #6 tablet 10/27/19 History of Present Illiness History of Present Illness: STAN LINN is a 64 year old female Who presents to the emergency room with complaints of difficulty breathing and shortness of breath. She was found to be quite hypoxic.She was tachypneic and found to have acute bronchospasm and so she was referred for admission. By the time I saw her she appeared to be much more comfortable in fact was sleeping comfortably in her room. COVID 19 test is currently pending. She had complained of a cough with a whitish sputum and initially she was hypoxic with oxygen saturation of 80% and temperature of 99.1. She received a nebulizer treatment as well as Solu-Medrol in the field prior to arrival in the hospital. Further work-up revealed a white count of 23.3 and chest x-ray revealed a right upper lobe consolidation likely pneumonia. She remained tachypneic at a rate of about 25 with sinus tachycardia and borderline blood pressure of 102/59. Patient is been admitted with sepsis likely secondary to pneumonia and [facility] Hospital Course: Patient was admitted to monitored floor. Her respiration actually improved and stabilized once admitted. She continued on her chronic 3 L of oxygen while in hospital. She was started on intravenous ceftriaxone as well as Zithromax which she received throughout her hospital stay. She completed a course of antibi otics with oral Ceftin. She received intravenous steroids which likely is exacerbating her leukocytosis. Patient's clinical status has been stable and although she still has a marked leukocytosis this is felt to be a leukemoid reaction likely secondary to the steroids as there is no deterioration of her clinical status. Suggest follow-up with her PCP to obtain repeat CBC at her next office visit. Patient was seen by a configuration developer due to her severe protein calorie malnutrition and nutritional supplementations are suggested. She has remained hemodynamically stable throughout her hospital stay and at this point it is felt that patient can be discharged home for outpatient follow-up and recuperation. Physical Exam Vital Signs: Temp Pulse Resp BP Pulse Ox 97.8 F 110 H 18 110/59 L 97 10/27/19 08:23 10/27/19 08:49 10/27/19 08:49 10/27/19 08:23 10/27/19 08:49 Intake & Output 10/26/19 10/27/19 10/28/19 06:59 06:59 06:59 Intake Total 2310 1770 Output Total 3300 1100 Balance -990 670 Weight 36.7 kg 36.2 kg General appearance: PRESENT: no acute distress, cooperative, thin Head exam: PRESENT: atraumatic, normocephalic Eye exam: PRESENT: conjunctiva pink, EOMI, PERRLA. ABSENT: scleral icterus Ear exam: PRESENT: normal external ear exam Mouth exam: PRESENT: moist, tongue midline Neck exam: ABSENT: carotid bruit, JVD, lymphadenopathy, thyromegaly Respiratory exam: PRESENT: clear to auscultation ronaldo, unlabored. ABSENT: rales, rhonchi, wheezes Cardiovascular exam: PRESENT: RRR, +S1, +S2. ABSENT: diastolic murmur, rubs, systolic murmur Pulses: PRESENT: normal dorsalis pedis pul Vascular exam: PRESENT: normal capillary refill GI/Abdominal exam: PRESENT: normal bowel sounds, soft. ABSENT: distended, guarding, mass, organolmegaly, rebound, tenderness Rectal exam: PRESENT: deferred Extremities exam: PRESENT: full ROM. ABSENT: calf tenderness, clubbing, pedal edema Musculoskeletal exam: PRESENT: ambulatory, other - Muscle wasting Neurological exam: PRESENT: alert, awake, oriented to person, oriented to place, oriented to time, oriented to situation, CN II-XII grossly intact. ABSENT: motor sensory deficit Psychiatric exam: PRESENT: appropriate affect, normal mood. ABSENT: homicidal ideation, suicidal ideation Skin exam: PRESENT: dry, intact, warm. ABSENT: cyanosis, rash Results Laboratory Results: WBC 23.5 10^3/uL (4.0-10.5) H 10/27/19 04:47 RBC 3.54 10^6/uL (3.72-5.28) L 10/27/19 04:47 Hgb 10.5 g/dL (12.0-15.5) L 10/27/19 04:47 Hct 31.3 % (36.0-47.0) L 10/27/19 04:47 MCV 88 fl (80-97) 05/18/20 04:47 MCH 29.6 pg (27.0-33.4) 10/27/19 04:47 MCHC 33.5 g/dL (32.0-36.0) 10/27/19 04:47 RDW 13.8 % (11.5-14.0) 10/27/19 04:47 Plt Count 456 10^3/uL (150-450) H 10/27/19 04:47 Lymph % (Auto) Not Reportable 10/27/19 04:47 [place] % (Auto) Not Reportable 10/27/19 04:47 Eos % (Auto) Not Reportable 10/27/19 04:47 Baso % (Auto) Not Reportable 10/27/19 04:47 Absolute Neuts (auto) Not Reportable 10/27/19 04:47 Absolute Lymphs (auto) Not Reportable 10/27/19 04:47 Absolute Monos (auto) Not Reportable 10/27/19 04:47 Absolute Eos (auto) Not Reportable 10/27/19 04:47 Absolute Basos (auto) Not Reportable 10/27/19 04:47 Total Counted 100 10/27/19 04:47 Seg Neutrophils % Not Reportable 10/27/19 04:47 Seg Neuts % (Manual) 96 % (42-78) H 10/27/19 04:47 Band Neutrophils % 2 % (3-5) L 10/26/19 05:21 Lymphocytes % (Manual) 2 % (13-45) L 10/27/19 04:47 Atypical Lymphs % 2 % (0) 10/24/19 06:35 Monocytes % (Manual) 2 % (3-13) L 10/27/19 04:47 Eosinophils % (Manual) 0 % (0-6) 10/27/19 04:47 Basophils % (Manual) 0 % (0-2) 10/27/19 04:47 Abs Neuts (Manual) 22.6 10^3/uL (1.7-8.2) H 10/27/19 04:47 Abs Lymphs (Manual) 0.5 10^3/uL (0.5-4.7) 10/27/19 04:47 Abs Monocytes (Manual) 0.5 10^3/uL (0.1-1.4) 10/27/19 04:47 Absolute Eos (Manual) 0.0 10^3/uL (0.0-0.6) 10/27/19 04:47 Abs Basophils (Manual) 0.0 10^3/uL (0.0-0.2) 10/27/19 04:47 Hypersegmented Neuts PRESENT 10/25/19 04:13 Toxic Granulation 1+ 10/27/19 04:47 Platelet Comment ADEQUATE 10/27/19 04:47 Polychromasia SLIGHT 10/27/19 04:47 Hypochromasia SLIGHT 10/22/19 13:52 Poikilocytosis SLIGHT 10/27/19 04:47 Tear Drop Cells SLIGHT 10/27/19 04:47 Ovalocytes SLIGHT 10/27/19 04:47 Schistocytes SLIGHT 10/27/19 04:47 RBC Morph Comment NORMO-CYTIC/CHROMIC 10/25/19 04:13 PT 13.6 SEC (11.4-15.4) 10/22/19 13:52 INR 1.04 10/22/19 13:52 APTT 29.2 SEC (23.5-35.8) 10/22/19 13:52 Carbonic Acid 1.76 mmol/L (1.05-1.35) H 10/27/19 02:50 HCO3/H2CO3 Ratio 22:1 10/27/19 02:50 ABG pH 7.45 (7.35-7.45) 10/27/19 02:50 ABG pCO2 58.4 mmHg (35-45) H 10/27/19 02:50 ABG pO2 67.1 mmHg (80-100) L 10/27/19 02:50 ABG HCO3 39.4 mmol/L (20-24) H 10/27/19 02:50 ABG Total CO2 41.2 mmol/L (21-25) H 10/27/19 02:50 ABG O2 Saturation 93.6 % (94-98) L 10/27/19 02:50 ABG Base Excess 13.3 mmol/L 10/27/19 02:50 VBG pH 7.29 (7.30-7.42) L 10/22/19 13:52 VBG pCO2 72.7 mmHg (35-63) H* 10/22/19 13:52 VBG HCO3 34.3 mmol/L (20-32) H 10/22/19 13:52 VBG Base Excess 5.6 mmol/L 10/22/19 13:52 FiO2 32% 10/27/19 02:50 Sodium 135.3 mmol/L (137-145) L 10/27/19 04:47 Potassium 4.5 mmol/L (3.6-5.0) 10/27/19 04:47 Chloride 91 mmol/L (98-107) L 10/27/19 04:47 Carbon Dioxide 40 mmol/L (22-30) H* 10/27/19 04:47 Anion Gap 4 (5-19) L 10/27/19 04:47 BUN 23 mg/dL (7-20) H 10/27/19 04:47 Creatinine 0.29 mg/dL (0.52-1.25) L 10/27/19 04:47 Est GFR ( Amer) > 60 (>60) 10/27/19 04:47 Est GFR (MDRD) Non-Af > 60 (>60) 10/27/19 04:47 Glucose 193 mg/dL (75-110) H 10/27/19 04:47 Lactic Acid 1.1 mmol/L (0.7-2.1) 10/22/19 13:52 Calcium 8.6 mg/dL (8.4-10.2) 10/27/19 04:47 Phosphorus 3.8 mg/dL (2.5-4.5) 10/23/19 05:35 Total Bilirubin 0.5 mg/dL (0.2-1.3) 10/22/19 13:52 Direct Bilirubin 0.0 mg/dL (0.0-0.4) 10/22/19 13:52 Neonat Total Bilirubin Not Reportable 10/22/19 13:52 Neonat Direct Bilirubin Not Reportable 10/22/19 13:52 Neonat Indirect Bili Not Reportable 10/22/19 13:52 AST 32 U/L (14-36) 10/22/19 13:52 ALT 45 U/L (<35) H 10/22/19 13:52 Alkaline Phosphatase 157 U/L (38-126) H 10/22/19 13:52 Troponin I < 0.012 ng/mL 10/22/19 15:22 NT-Pro-B Natriuret Pep 166 pg/mL (<125) H 10/22/19 13:52 Total Protein 5.8 g/dL (6.3-8.2) L 10/22/19 13:52 Albumin 2.9 g/dL (3.5-5.0) L 10/22/19 13:52 Lipase 55.2 U/L (23-300) 10/22/19 13:52 Urine Color YELLOW 10/23/19 03:30 Urine Appearance SLIGHTLY-CLOUDY 10/23/19 03:30 Urine pH 6.0 (5.0-9.0) 10/23/19 03:30 Ur Specific Gregory 1.016 10/23/19 03:30 Urine Protein NEGATIVE mg/dL (NEGATIVE) 10/23/19 03:30 Urine Glucose (UA) >=500 mg/dL (NEGATIVE) H 10/23/19 03:30 Urine Ketones NEGATIVE mg/dL (NEGATIVE) 10/23/19 03:30 Urine Blood NEGATIVE (NEGATIVE) 10/23/19 03:30 Urine Nitrite NEGATIVE (NEGATIVE) 10/23/19 03:30 Urine Bilirubin NEGATIVE (NEGATIVE) 10/23/19 03:30 Urine Urobilinogen 4.0 mg/dL (<2.0) H 10/23/19 03:30 Ur Leukocyte Esterase NEGATIVE (NEGATIVE) 10/23/19 03:30 Urine WBC (Auto) 2 /HPF 10/23/19 03:30 Urine RBC (Auto) 6 /HPF 10/23/19 03:30 U Hyaline Cast (Auto) 3 /LPF 10/23/19 03:30 Squamous Epi Cells Auto 1 /HPF 10/23/19 03:30 Urine Mucus (Auto) FEW /LPF 10/23/19 03:30 Urine Ascorbic Acid 20 (NEGATIVE) H 10/23/19 03:30 Urine Opiates Screen NEGATIVE 10/23/19 03:30 Urine Methadone Screen NEGATIVE 10/23/19 03:30 Ur Barbiturates Screen NEGATIVE 10/23/19 03:30 Ur Phencyclidine Scrn NEGATIVE 10/23/19 03:30 Ur Amphetamines Screen NEGATIVE 10/23/19 03:30 U Benzodiazepines Scrn NEGATIVE 10/23/19 03:30 Urine Cocaine Screen NEGATIVE 10/23/19 03:30 U Marijuana (THC) Screen NEGATIVE 10/23/19 03:30 COVID-19 Source Cancelled 10/22/19 15:45 COVID-19 (KOLBY) Cancelled 10/22/19 15:45 Influenza A (Rapid) NEGATIVE (NEGATIVE) 10/22/19 15:22 Influenza B (Rapid) NEGATIVE (NEGATIVE) 10/22/19 15:22 SARS-CoV-2 (PCR) NEGATIVE (NEGATIVE) 10/22/19 15:45 10/22/19 10/22/19 13:52 15:22 Troponin I < 0.012 NT-Pro-B Natriuret Pep 166 H Impressions: Chest X-Ray 10/22/19 13:33 IMPRESSION: Acute consolidation in the right upper lobe. Clinical correlation to exclude a pneumonia is recommended. Plan Health Concerns: Follow-up CBC to document resolution of leukocytosis Time Spent: Greater than 30 Minutes Stroke Is this a Stroke Patient?: No Acute Heart Failure - Is this a Heart Failure Patient?: No
[2019-10-27 11:37] VITALS: BP 97/50
== END 2019-10-27 11:53 | disposition home or self-care (01) | DRG 871 ==
LOC: ER 13:31 → EH 16:39 → 3W 18:29
PROVIDERS: ADMIT Internal Medicine; ATTEND Internal Medicine
DX: A41.9 Sepsis, unspecified organism (principal); J18.9 Pneumonia, unspecified organism; J96.21 Acute and chronic respiratory failure with hypoxia; E43 Unspecified severe protein-calorie malnutrition; J44.0 Chronic obstructive pulmonary disease with (acute) lower respiratory infection; J44.1 Chronic obstructive pulmonary disease with (acute) exacerbation; Z68.1 Body mass index [BMI] 19.9 or less, adult; Z20.828 Contact with and (suspected) exposure to other viral communicable diseases; F17.210 Nicotine dependence, cigarettes, uncomplicated; Z79.51 Long term (current) use of inhaled steroids
CPT/HCPCS: 36415; 36600; 71045; 80048; 80053; 80307; 81001; 82803; 83605; 83690; 83880; 84100; 84484; 85025; 85610; 85730; 87040; 87635; 87804; 93005; 93010; 94640; 96361; 96365; 96367; 99291; J0692; J0696; J2920; J3370; J3475; J3490; J7030; J7040; J7512; J7620